=== PATIENT | female | born 1990 | race Caucasian/White ===

== ENCOUNTER 2017-08-10 20:22 | Outpatient (CLI) | payer OTHER, SELFPAY ==
[2017-08-10] MEDS: Lactated Ringers 1,000 ML 999 ML IV (21:05)
[2017-08-10 21:26] VITALS: BMI 25.9
[2017-08-10 21:29] LABS: Bacteria 0 SEEN /hpf (None Seen); Red Blood Cells-Urine 0 SEEN /hpf (0-5)
[2017-08-10 21:37] LABS: Absolute Lymphocyte Count 0.71 X10^3/ul (0.83-4.51); Absolute Neutrophil Count 8.9 X10^3/uL (2.0-7.7); Eosinophil# 0.04 X10^3/uL; Eosinophils% 0.4 % (0-5); Hematocrit 40.3 % (37-47); Hemoglobin 13.4 g/dl (12.0-15.0); Lymphocyte # 0.71 X10^3/ul (4.0); Mean Corp Hgb Conc 33.3 g/gl (32-36); Mean Corpuscular Hgb 29.8 pg (27.0-32.0); Mean Corpuscular Volume 89.8 fL (81-99); Mean Platelet Vol. 10.1 fl (6.2-12.0); Monocyte# 0.52 X10^3/uL; Monocyte% 5.1 % (0-10); Neutrophil # 8.89 X10^3/uL (2.7-7.7); Neutrophil % 87.3 % (47-70); Platelet Count 197 K/mm3 (150-450); RBC Distribution Width CV 13.3 % (11.6-14.6); RBC Distribution Width SD 42.8 fl (35.1-43.9); Red Blood Count 4.49 M/mm3 (4.2-5.4); White Blood Count 10.2 K/mm3 (4.4-11.0)
[2017-08-10 21:44] LABS: Color, Urine Yellow (Yellow); Glucose, Dipstick Normal (Normal); Ketone-Dipstick 5 mg/dl (Negative); Leukocyte Esterase-Dipstick 100 /ul (Negative); Nitrite-Dipstick Negative (Negative); Occult Blood-Urine 10 /ul (Negative); Protein-Dipstick 30 mg/dl (Negative); Urine Clarity Clear (Clear); Urine Urobilinogen Normal (Normal); Urine pH 6.5 (5.0 - 8.0)
[2017-08-10 21:46] LABS: Urine Bilirubin Dipstick 1 mg/dL (Negative)
[2017-08-10 21:51] LABS: ALB/GLOB Ratio 0.7 RATIO (0.9-2.4); AST(SGOT) 13 U/L (15-37); Alanine Aminotransfer ALT/SGPT 12 U/L (13-56); Albumin, Serum 2.8 g/dL (3.2-5.0); Alkaline Phosphatase 71 U/L (45-117); Anion Gap 9 (5-15); BUN 7 mg/dL (7-18); BUN/Creat Ratio 16.1 RATIO (10-20); Calcium,Total 7.6 mg/dL (8.5-10.1); Chloride 106 mmol/L (98-107); Creatinine, Serum 0.44 mg/dL (0.55-1.02); EST Glomerular Filtration Rate 187 mL/min (>60); Est Glom Filt Rate - Afr Amer 226 mL/min (>60); Estimated Creatinine Clearance 168.78 ml/min; Globulin 3.8 g/dL (2.2-4.2); Glucose 85 mg/dL (74-106); Potassium 3.2 mmol/L (3.5-5.1); Protein, Total 6.6 g/dL (6.4-8.2); Sodium Level 138 mmol/L (136-145)
[2017-08-10 21:52] LABS: Mucous, Urine 1+ /hpf (<or=2+); Squamous Epithelial Cells - UA 10-25 SEEN /hpf (5-10); White Blood Cells 0-5 SEEN /hpf (0-5)
[2017-08-10 21:58] LABS: POSITIVE COUNT NO; POSITIVE DIFFERENTIAL NO; POSITIVE MORPHOLOGY NO
[2017-08-10] MEDS: Ondansetron 4 MG/2 ML Vial IV (22:23)
[2017-08-10] MEDS: Acetaminophen 500 MG Tablet 1000 MG PO (22:23)
--- NOTE | 2017-08-14 18:04 | OB.TRI.NOTE ---
History of Present Illness Date of Service: 08/10/17 Was patient seen by the physician?: No Reason For Visit: R/O LABOR Date of Service: 08/10/17 Final DALLAS: 11/23/17 Gestational age: 25 Weeks and 4 Days History of Present Illness: Presented to L&D with complaint of nausea, vomiting, and headache since 0200 this am. Also complaint of hip pain and pressure. Home Medications Medication Instructions Recorded Vits [Prenatabs FA ] 1 tablet PO DAILY 10/28/13 Allergies No Known Allergies Allergy (Verified 08/10/17 21:26) NST - FHR Rate Baby A Baseline: 150 Variability:: Moderate Accelerations:: 15 x 15 Decelerations:: Variable NST Reactive:: Yes FHR Category:: Category II Impression/Plan A: Gastroenteritis Hypokalemia P: 1) 1 Liter LR bolus IV 2) CBC, CMP and U/A 3) K= 3.2, 20meq Potassium Chloride PO once. 4) 1,000mg Tyleonl PO x 1 5) Zofran 4mg IVP once 6) D/C home and follow up in office next day.
== END 2017-08-10 23:45 | disposition home or self-care (01) ==
LOC: WPOUT 20:55 → WP 20:55
PROVIDERS: Family Provider Family Medicine; PCP Family Medicine; Visit Provider Obstetrics & Gynecology
DX: O99.612 Diseases of the digestive system complicating pregnancy, second trimester (principal); K52.9 Noninfective gastroenteritis and colitis, unspecified; O99.112 Other diseases of the blood and blood-forming organs and certain disorders involving the immune mechanism complicating pregnancy, second trimester; E87.6 Hypokalemia; Z3A.25 25 weeks gestation of pregnancy
CPT/HCPCS: 96361; 96374; 59025; 80053; 81001; 85025; 99218; J7120; A4216; G0378; J2405

== ENCOUNTER 2017-10-15 13:05 | Outpatient (CLI) | payer OTHER, SELFPAY ==
[2017-10-15 13:41] VITALS: BMI 27.6
[2017-10-15] MEDS: Dext 5%-0.45% NS 1,000 ML 500 ML IV (13:50)
[2017-10-15] MEDS: Ondansetron 4 MG/2 ML Vial IV (14:00)
[2017-10-15] MEDS: Dext 5%-0.45% NS 1,000 ML 125 ML IV (14:20)
[2017-10-15 15:30] LABS: Bacteria 0 SEEN /hpf (None Seen); Mucous, Urine 0 SEEN /hpf (<or=2+); Red Blood Cells-Urine 0 SEEN /hpf (0-5)
[2017-10-15 15:33] LABS: Color, Urine Yellow (Yellow); Glucose, Dipstick 100 mg/dl (Normal); Ketone-Dipstick Negative (Negative); Leukocyte Esterase-Dipstick 100 /ul (Negative); Nitrite-Dipstick Negative (Negative); Occult Blood-Urine Negative /ul (Negative); Protein-Dipstick Negative (Negative); Specific Gravity, Urine 1.005 (1.002-1.030); Urine Bilirubin Dipstick Negative (Negative); Urine Clarity Sl. Cloudy (Clear); Urine Urobilinogen Normal (Normal); Urine pH 6.5 (5.0 - 8.0)
[2017-10-15 15:47] LABS: Squamous Epithelial Cells - UA 10-25 SEEN /hpf (5-10); White Blood Cells 5-10 SEEN /hpf (0-5)
--- NOTE | 2017-10-16 08:58 | OB.TRI.HP_ITS ---
- Problem List (1) Nausea/vomiting in Status: Acute History of Present Illness Date of Service: 10/15/17 Was patient seen by the physician?: No Reason For Visit: NAUSEA,VOMITING Date of Service: 10/15/17 Final DALLAS: 11/23/17 Final DALLAS Source: US <20 weeks Gestational age: 34 Weeks and 4 Days History of Present Illness: Patient reports she was visitng with her grandmother over the last few days and her grandmother came down with a stomach bug. Patient has had n/v for almost 24 hours and has been unable to keep food and water down for over 12 hours. Patient also reports increase in stomach cramping and possible pre-term contractions. Patient reports +FM. Denies LOF or VB. Denies fever, denies diarrhea. Patient has not taken any OTC for symptoms as she has not been able to keep anything down. Allergies No Known Allergies Allergy (Verified 10/15/17 13:41) Physical Exam Vitals: See nurse's notes for assessment and vitals - normotensive and afebrile. Physical assessment unremarkable. Estimated gestational size: Appropriate for gestational size Presentation: Cephalic Cervix Dilation (cm): 3 - Cervix posterior and firm Station: -3 Effacement (%): 50 NST - FHR Rate Baby A Baseline: 120 initially, change of baseline to 130 Variability:: Moderate Accelerations:: 15 x 15 Decelerations:: None NST Reactive:: Yes, Appropriate for gestational age FHR Category:: Category I Uterine Activity:: uterine irritablity noted on tocometer Impression/Plan 27 y/o @ 34.4 wks, Dehydration r/t possible viral gastroenteritis, Contractions - PTL ruled out P: 1) IV hydration initiation with D51/2NS - 500cc bolus and then running at 125mL 2) Zofran ODT 4mg PO x 1 now 3) PO challenge done - patient able to tolerate fluids 4) No cervical change after prolonged monitoring 5) Discharge to home with PTL and FKC precautions [facility] 7) Dr. Maxi GALE OB consulting physician agrees with Plan of Care Bisi Ramirez APRN-NEAL
== END 2017-10-15 17:20 | disposition home or self-care (01) ==
LOC: WPOUT 13:11 → WP 13:12
PROVIDERS: Family Provider Family Medicine; PCP Family Medicine; Visit Provider Obstetrics & Gynecology
DX: O21.2 Late vomiting of pregnancy (principal); O99.89 Other specified diseases and conditions complicating pregnancy, childbirth and the puerperium; E86.0 Dehydration; O47.00 False labor before 37 completed weeks of gestation, unspecified trimester; Z3A.34 34 weeks gestation of pregnancy
CPT/HCPCS: 96361 ×3; 96374; 59025; 59050; 81001; 99218; G0378; J2405; J7799

== ENCOUNTER 2017-11-02 02:00 | Inpatient (IN) | payer OTHER, SELFPAY ==
[2017-11-02 02:38] VITALS: BMI 27.8
[2017-11-02] MEDS: Lactated Ringers 1,000 ML 50 ML IV (02:38)
[2017-11-02 02:51] LABS: Hematocrit 40.9 % (37-47); Hemoglobin 13.7 g/dl (12.0-15.0); Mean Corp Hgb Conc 33.5 g/gl (32-36); Mean Corpuscular Hgb 30.2 pg (27.0-32.0); Mean Corpuscular Volume 90.1 fL (81-99); Mean Platelet Vol. 10.3 fl (6.2-12.0); Platelet Count 239 K/mm3 (150-450); RBC Distribution Width CV 12.8 % (11.6-14.6); RBC Distribution Width SD 41.5 fl (35.1-43.9); Red Blood Count 4.54 M/mm3 (4.2-5.4); White Blood Count 12.1 K/mm3 (4.4-11.0)
[2017-11-02 02:52] LABS: Scan Indicated on CBC? Y/N NO
--- NOTE | 2017-11-02 03:11 | PCM.HP.OB ---
- Problem List (1) Previous section complicating Status: Acute History Date of Admission: 11/02/16 Final DALLAS: 11/23/17 Final D[place] Source: US <20 weeks Gestational age: 37 Weeks and 0 Days History of this : This is a 27 year-old, G [4], P [2], at 37 weeks gestational age presenting to labor following regular ctx starting at 2330. Allergies No Known Allergies Allergy (Verified 11/02/17 02:36) Home Medications: Home Medications Vits [Prenatabs FA ] 1 tablet PO DAILY 10/28/13 Smoking Status: Never smoker Alcohol: None Number of Fetus(es): 1 History Past Pregnancies: Past Pregnancies Delivery Date Name GA/Weeks Outcome Route Weight Gender Labor Length Anesthesia Delivery Location Provider FOB Assessment/Plan All Active Problems Nausea/vomiting in (Acute) Premature rupture of membranes (Acute) Previous section complicating (Acute) Previous section (Acute) Previous section (Acute) This is a 27 year-old, G [], P [], at weeks gestational age.
[2017-11-02] MEDS: Oxytocin 30 units/NS 500 ml 30 UNITS/500 ML IV.SOLN 334 UNITS IV (03:46)
--- NOTE | 2017-11-02 04:01 | PCM.HP.OB ---
- Problem List (1) Previous section complicating Status: Acute History Date of Admission: 11/02/17 Final DALLAS: 11/23/17 Final [place] Source: US <20 weeks Gestational age: 37 Weeks and 0 Days History of this : This is a 27 year-old, G [4], P [2], at 37 weeks gestational age presenting to triage reporting regular ctx starting at 2330 that quickly got closer together and more intense. Patient reports +FM; denies vaginal bleeding and vaginal discharge. Patient reports rectal pressure and urge to push. Allergies No Known Allergies Allergy (Verified 11/02/17 02:36) Home Medications: Home Medications RX: Vits [Prenatabs FA ] 1 tablet PO DAILY 10/28/13 Smoking Status: Never smoker Alcohol: None Number of Fetus(es): 1 Heart Tracing: Baseline 125 initially, moderate variability, no decels noted TOCO Analysis: Ctx q 2-3 minutes, palpate moderate to strong History Past Pregnancies: Past Pregnancies Delivery Date Name GA/Weeks Outcome Route Weight Gender Labor Length Anesthesia Delivery Location Provider FOB Labs: See [facility] record: A+, Abs Neg, GBS Screen Neg, Rubella Immune, HepBsAg Neg, HIV Neg, Syphilis Screen Neg, GC/CT Neg/Neg, 1 hour GCT WNL Expected Delivery Method: Spontaneous Vaginal Describe any other labor & delivery plans:: Patient hopes for epidural for labor and . Desires . Number of Visits: >12 Review of Systems Constitutional: Denies: Chills, Fever, Weight Change HEENT: Denies: Head Aches, Sinus Congestion, Sinus Drainage Cardiovascular: Denies: Chest Pain, Palpitations Respiratory: Denies: Cough, Shortness of breath at rest, Sputum production Gastrointestinal: Denies: Abdominal Pain, Nausea, Vomiting Genitourinary: Denies: Dysuria Musculoskeletal: Denies: Joint Pain, Joint Tenderness Skin: Denies: Rash, Wounds Neurological: Denies: Numbness, Tingling, Focal weakness Psychiatric: Denies: Anxiety, Depression, Homicidal Ideations, Suicidal Ideations Hematologic/ Lymphatic: Denies: Easy Bruising, Easy Bleeding Physical Exam General: Alert, Oriented x3, No apparent distress HEENT: Atraumatic, Normocephalic. Negative for: Thyromegaly, Lymphadenopathy Cardiovascular: Regular rate, Regular Rhythm Lungs: Clear to auscultation Abdomen: Soft, Non Tender, Gravid, Appropriate for Gestational Age Extremities:: No edema Neurological: Deep Tendon Reflexes 2+/4 and Symmetrical, Neuro grossly intact CLIENT CARE REPRESENTATIVE: Normal external genitalia. Negative for: Vulvar lesions Estimated gestational size: Appropriate for gestational size Presentation: Cephalic Cervix Dilation (cm): 6.5 Station: 0 Effacement (%): 90 Assessment/Plan All Active Problems Nausea/vomiting in (Acute) Premature rupture of membranes (Acute) Previous section complicating (Acute) Previous section (Acute) Previous section (Acute) This is a 27 year-old, G [4], P [2], at 37 weeks gestational age, Active Labor, Previous LTCS desiring TOLAC, Category I FHT P: 1) Admit patient, Dr. Leija aware of admission and is in route 2) Start IV heplock and start fluid bolus in anticipation of epidural placement 3) TOLAC/ consent signed with patient 4) Anticipate Bisi PANTOJA
--- NOTE | 2017-11-02 04:13 | HP.PCM_ITS ---
- Problem List (1) Previous section complicating Status: Acute History Date of Admission: 11/02/17 Final DALALS: 11/23/17 Final [place] Source: US <20 weeks Gestational age: 37 Weeks and 0 Days History of this : This is a 27 year-old, G [4], P [2], at 37 weeks gestational age presenting to triage reporting regular ctx starting at 2330 that quickly got closer together and more intense. Patient reports +FM; denies vaginal bleeding and vaginal discharge. Patient reports rectal pressure and urge to push. Allergies No Known Allergies Allergy (Verified 11/02/17 02:36) Home Medications: Home Medications RX: Vits [Prenatabs FA ] 1 tablet PO DAILY 10/28/13 Smoking Status: Never smoker Alcohol: None Number of Fetus(es): 1 Heart Tracing: Baseline 125 initially, moderate variability, no decels noted TOCO Analysis: Ctx q 2-3 minutes, palpate moderate to strong History Past Pregnancies: Past Pregnancies Delivery Date Name GA/Weeks Outcome Route Weight Gender Labor Length Anesthesia Delivery Location Provider FOB Labs: See [facility] record: A+, Abs Neg, GBS Screen Neg, Rubella Immune, HepBsAg Neg, HIV Neg, Syphilis Screen Neg, GC/CT Neg/Neg, 1 hour GCT WNL Expected Delivery Method: Spontaneous Vaginal Describe any other labor & delivery plans:: Patient hopes for epidural for labor and . Desires . Number of Visits: >12 Review of Systems Constitutional: Denies: Chills, Fever, Weight Change HEENT: Denies: Head Aches, Sinus Congestion, Sinus Drainage Cardiovascular: Denies: Chest Pain, Palpitations Respiratory: Denies: Cough, Shortness of breath at rest, Sputum production Gastrointestinal: Denies: Abdominal Pain, Nausea, Vomiting Genitourinary: Denies: Dysuria Musculoskeletal: Denies: Joint Pain, Joint Tenderness Skin: Denies: Rash, Wounds Neurological: Denies: Numbness, Tingling, Focal weakness Psychiatric: Denies: Anxiety, Depression, Homicidal Ideations, Suicidal Ideations Hematologic/ Lymphatic: Denies: Easy Bruising, Easy Bleeding Physical Exam General: Alert, Oriented x3, No apparent distress HEENT: Atraumatic, Normocephalic. Negative for: Thyromegaly, Lymphadenopathy Cardiovascular: Regular rate, Regular Rhythm Lungs: Clear to auscultation Abdomen: Soft, Non Tender, Gravid, Appropriate for Gestational Age Extremities:: No edema Neurological: Deep Tendon Reflexes 2+/4 and Symmetrical, Neuro grossly intact TANK CLEANING SUPERVISOR: Normal external genitalia. Negative for: Vulvar lesions Estimated gestational size: Appropriate for gestational size Presentation: Cephalic Cervix Dilation (cm): 6.5 Station: 0 Effacement (%): 90 Assessment/Plan All Active Problems Nausea/vomiting in (Acute) Premature rupture of membranes (Acute) Previous section complicating (Acute) Previous section (Acute) Previous section (Acute) This is a 27 year-old, G [4], P [2], at 37 weeks gestational age, Active Labor, Previous LTCS desiring TOLAC, Category I FHT P: 1) Admit patient, Dr. Leija aware of admission and is in route 2) Start IV heplock and start fluid bolus in anticipation of epidural placement 3) TOLAC/ consent signed with patient 4) Anticipate Bisi PANTOJA
--- NOTE | 2017-11-02 04:13 | PCM.OB.VAG ---
- Problem List (1) Previous section complicating Status: Resolved Vaginal Delivery Maternal Presentation: Active Labor Amniotic Membrane Rupture Type: Artificial Amniotic Fluid Description: Clear, Bloody Final DALLAS: 11/23/17 Final [place] Source: US <20 weeks Gestational age: 37 Weeks and 0 Days Date of Procedure: 11/02/17 Pre-Operative Diagnosis: Active Labor, TOLAC Post-Operative Diagnosis: , Surgery/ Procedure Performed: Spontaneous Vaginal Delivery Type of Anesthesia: None Description of Procedure: Patient progressed quickly to 9/100/0 with urge to push. Discussed with patient that she would likely deliver soon and that there would not be time for epidural placement. AROM done to help hasten delivery. AROM for clear-bloody fluid done without difficulty. With next few ctx patient felt spontaneous urge to bear down and delivered viable girl over intact perineum at 0340. Infant head delivered OA and then restituted to BERNARDO. Infant shoulders and body then delivered without difficulty. Infant with spontaneous cry and respirations. Infant dried and stimulated, mouth and nose bulb suctioned and infant placed on maternal chest. Apgars 8 and 8. Umbilical cord clamped and cut once it stopped pulsing by FOB. Placenta then delivered with maternal effort using gentle downward cord traction initially. Evidence of tearing of cord noted and no further traction was placed. Half of placental disc was out of vagina and delivery was assisted with use of ring forceps to grasp placental disc with maternal pushing effort. Placenta looked intact on inspection with 3VC but will be sent to pathology to assess completeness. FF to massage and midline 2FB below umbilicus. EBL = 150cc. Upon inspection of vaginal vault, no laceration noted. Bilateral periurethral abrasions detected with good hemostasis. No repair necessary. Sponge count correct. Vaginal sweep negative. Baby to breast, bonding and initiated. Dr. Leija notified of delivery. Bisi Ramirez STATISTICAL DEVELOPER-CNM Presentation: Vertex, BERNARDO Placental Delivery Description: Spontaneous, Manual Removal Placenta Disposition: Sent to Pathology Cord Vessel Description: 3 Vessels Cord Entanglement: None Estimated Blood Loss: 150 A gender: Female (1 minute): 8 (5 minute): 8 Episiotomy Description: None Laceration: None Medications given after delivery: IV Pitocin Complications: None
[2017-11-02] MEDS: Oxytocin 30 units/NS 500 ml 30 UNITS/500 ML IV.SOLN 167 UNITS IV (04:16)
--- NOTE | 2017-11-02 04:23 | NURSING ---
voided during pushing, not measured
--- NOTE | 2017-11-02 04:42 | DCINST_ITS ---
Discharge Diet: No Restrictions Discharge Activity: Return to Normal Activity, May not drive while taking narcotic pain medications., May Shower May resume sexual activity in: 4-6 weeks Additional Activity Instructions:: Nothing in the vagina for 4-6 weeks. You may return to work/school in 6 weeks. Call your doctor if your incision/area has: Continuous Slow Oozing, Sudden Increased Bleeding, Increased Pain/ Swelling, Increased Redness, Foul Smelling Discharge Call your doctor if you observe: Fever of 101 or Higher, Inability to urinate, Using more than one pad per hour, Uncontrolled pain Additional Instructions: If you experience any of the following, contact your healthcare provider. * Bleeding that soaks a pad every hour for 2 hours * Fever 100.4 or higher * Unrelieved incision or abdominal pain * Swelling, redness, discharge or bleeding from your incision or episiotomy site * Your incision begins to separate * Problems urinating (including inability to urinate or burning while urinating) . * Visual changes * Severe headache * Flu-like symptoms * Pain or redness in one of both of your breasts * Pain, warmth, tenderness or swelling in your legs, especially the calf area * Frequent nausea and vomiting * Symptoms of depression or anxiety If you experience any of the following, call 911 or go to the nearest Emergency Room. * Chest pain * Problems breathing * Seizure activity * Partial or complete paralysis of a body part, slurred speech, weakness or drooping of the face, or a sudden inability to walk or hold your balance Allergies/Adverse Reactions: Allergies No Known Allergies Allergy (Verified 11/02/17 02:36) Medications to take at Discharge Vits [Prenatabs FA ] 1 tablet PO DAILY 10/28/13 Please Follow Up With: Bisi Ramirez CNM When: Call to make an appointment with your doctor in 6 weeks. If you had elevated Blood Pressure or 4th degree laceration you will need to be seen in 2 weeks. Primary Care Physician: Lucian Henderson III, MD [Primary Care Provider] - Test Results: Test results from this visit will be discussed in further detail at your follow- up appointment, if applicable. Proposed Discharge Date: 11/02/17
[2017-11-02] MEDS: 0.9% Saline Lock 10 ML Syringe IV (05:20)
[2017-11-02 05:49] VITALS: BP 118/75; PULSE 66; RESP 18; TEMP 36.2
[2017-11-02 08:00] VITALS: BP 110/67; PULSE 70; RESP 16; TEMP 36.4; O2SAT 96
[2017-11-02 12:37] VITALS: BP 112/77; RESP 16; TEMP 36.4
--- NOTE | 2017-11-02 15:49 | CASEMGMT ---
Social Work Note Labor and Delivery Unit Social work consulted due to maternal history of depression. Chart reviewed and noted in the care record that mother of baby (MOB) endorsed depression after both previous pregnancies, though never disclosed this to health child care development specialist. Plan: Will plan to see MOB on 11-03-17 for assessment. -CATHRYN Cardenas, DIVISION OPERATIONS MANAGER
[2017-11-02 19:40] VITALS: BP 119/46; PULSE 83; RESP 18; TEMP 36.2
[2017-11-02 23:38] VITALS: BP 128/89; PULSE 80; RESP 18; TEMP 36.1
[2017-11-03 04:10] VITALS: BP 126/78; PULSE 87; RESP 18; TEMP 36.3
--- NOTE | 2017-11-03 07:41 | NURSING ---
This RN noting interactions between patient and FOLuis Fernando Aguilar. This RN was caring for patient in labor. When asked if Jeff wanted to interact with patient during labor, he repeatedly said no. He did not participate in holding legs during delivery, remained in corner of room in chair on cell phone. He did not interact with mother or after delivery during recovery period, then proceeded to go home before patient off recovery. He did not return to hospital until 1900 on 11/02. He was never seen holding infant or interacting with patient or infant. Slept on couch overnight. When RN asked if she felt safe at home she said yes. She denied any hx abuse. States she has help after dc. Order is in for social staff worker to see patient before dc.
--- NOTE | 2017-11-03 08:16 | PN.OBGYN_ITS ---
Subjective: Patient sitting up at this time, reporting no issues. No pain with ambulation or urination. Patient denies MATA, scotoma or dizziness. Patient requests discharge to home today pending discharge. Objective: Nipples BL without cracks or blisters, no erythema. Soft and filling. Abdomen NT x 4 quadrants, FF midline 2FB below umbilicus Perineum intact, scant rubra lochia +2/4 reflexes in LE, no calf tenderness to palpation - Physical Exam General: Alert, Oriented x3, Cooperative HEENT: Atraumatic, Normocephalic Neck: Supple Lungs: Normal air movement Cardiovascular: Regular rate, No murmurs Abdomen: Soft, Non Tender Extremities: No edema, Capillary Refill Less than 3 Seconds Skin: No rashes, No breakdown Musculoskeletal: No Tenderness to Palpation of Joints or Extremities Neurological: Cranial nerves II-XII grossly intact Psych/Mental Status: Normal Affect, Appropriate Vital Signs Temp Pulse Resp BP Pulse Ox 97.3 F L 87 18 126/78 H 96 11/03/17 04:10 11/03/17 04:10 11/03/17 04:10 11/03/17 04:10 11/02/17 08:00 Oxygen Delivery Method Room Air Weight: 162 lb Body Mass Index (BMI) 27.8 Intake and Output for Last 24 Hours 11/01/17 11/02/17 11/03/17 23:59 23:59 23:59 Intake Total 1347 / 1347 Output Total 600 / 600 Balance 747 / 747 Medical Necessity - Tobacco Use Smoking Status: Never smoker Assessment/Plan All Active Problems Nausea/vomiting in (Acute) Premature rupture of membranes (Acute) Previous section complicating (Resolved) Previous section (Acute) Previous section (Acute) 27 y/o G3, now P3 s/p -. Normal PP Course, PPD #1. P: 1) Discharge to home pending discharge 2) Nexplanon LARC implant procedure done 3) Anticipatory health teaching done 4) RTC in 6 week to [facility] for PP visit Bisi PANTOJA
[2017-11-03] MEDS: Etonogestrel 68 MG IMPLANT SQ (08:35)
[2017-11-03 09:06] VITALS: BP 112/71; PULSE 72; RESP 16; TEMP 36.5
[2017-11-03 14:00] VITALS: BP 122/80; PULSE 82; RESP 18; TEMP 36.8
--- NOTE | 2017-11-03 14:22 | CASEMGMT ---
Social Work Assessment Labor and Delivery Unit Date of Referral: 11/02/2017 Time of Referral: 736 Referred By: Dr. Madi Leija Date of Intervention: 11/03/2017 Time of Intervention: 1030 Reason for Referral: maternal mental health, history of mild depression. History obtained from: Medical record, mother of baby (MOB), and reported father of baby (FOB) present for part of conversation. Household composition: MOB, FOB, and older children live in an apartment. Intent to take to the home. MOB reports home situation is safe and adequate. Patient's parent/guardian status: MOB, age 27, and FOB Jeff Ray have been together for 9 years, and now have 3 children together. Domestic Violence: MOB denies any form of abuse, neglect, controlling, or intimidation by FOB. MOB denies that FOB expects MOB to do certain things in the home. MOB reports to feel safe and reports ability to speak up to FOB, as well as reports perception that FOB is willing to help MOB when needed or requested. Minor children include: Tammy (born 1[birth year]15), Bowen (born 7[birth year]17), and Timo Ray (born 7[birth year]18). Medical History: MOB is G4, P2 to 3 after delivering Timo. MOB with care starting at 7 weeks. MOB with close intervals between pregnancies. Infant was born at 37 weeks gestation, weighing 6 pounds 3 ounces, Apgars 8 and 8. Educational Status: MOB with high school education. No reported issues with reading or writing. Financial Status: MOB became a stay at home mother about 6 months ago. 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 FOLuis Fernando is the sole income provider at this point, works fulltime as a daja. Infant Supplies: MOB reports to have needed infant supplies including bassinet for baby to sleep in, car seat, clothing, diapers, wipes, and plans to breast feed. MOB reports each child has her own sleep space. Childcare/Caregiver(s): MOB Transportation: FOB drives or MOB relies on MOBs mother for rides. Programs/Agencies Involved: MOB reports interested in getting WIC, as well as reapplying for Medicaid for her daughters as apparently let this lapse. MOB denies any other agency involvement or desire for other referrals. Children Services/Legal Issues: MOB denies legal issues. MOB denies any past or present involvement with children services. Behavioral Health Issues: MOB reports history of depression occurring after prior births. MOB reports this was mild, not to the point of needing any medication or counseling. MOB describes this time as feeling sad and down. At the same time, MOB was working 3rd shift, FOB worked during the day, and MOB reports felt that had to do everything and therefore was not sleeping much either. MOB reports dealt with depression by getting out of the house, being with others/not isolating, and talking to MOBs mother daily. MOB denies that suicide has ever been an option for MOB and reports at this juncture, MOBs children are a great reason to live. MOB reports to identify with being a mother, and would do anything for the children. MOB denies any drug or alcohol use or abuse history. Drug screen done prenatally on 04-09-17 was negative for any drugs of abuse. Family/Social Stressors: MOB and FOB are in the process of moving to a bigger apartment when MOB went into labor. MOB will be taking baby to the new apartment at discharge, but the family does still have things in the old apartment to move over. In addition to this change, MOB with close intervals between pregnancies. MOB reports the was a shock, but that MOB was and has been happy about the baby. Family has gone from two incomes to one income, and not currently connected with any community resources. Support Systems: MOB reports that FOB is a good support to MOB when FOB is at home. FOB interjected and stated I wouldnt go that far when MOB was reporting praises to FOB being a lot of help at home. MOB reports FOB does like to come home to shower and to eat after work, but does help MOB with the kids when needed. MOB reports her mother, and then FOBs mother also live close by and are willing to help out as well. When asked who will be able to help MOB at home going, as FOB will be going back to work shortly after home going, FOB reported likely his mother will be able to help out. MOBs mother has been taking care of the other children while family in the hospital. ASSESSMENT: Met with MOB and FOB together initially, and then alone with MOB to further discuss mental health, substances, and domestic violence questions. Was able to talk with both together about depression, and importance of MOB having support and help from others. FOB listened to social work discussion, was quiet overall, at times nodding head yes in agreement to some topics discussed. Despite lack of interactions the staff has seen by FOB towards MOB and the baby, the MOB privately states that FOB is helpful with the kids, that FOB is excited about the children and loves all of the children. MOB reports perception that support at home is adequate. Educated MOB and FOB together about depression and anxiety, risk for such present with MOB, and importance of seeking out help and support. Normalized this as something that happens to many women, that this is not a fault or shortcoming of the woman, but something that benefits from support. Discussed that it is okay to let others know, and really is important to have self-care. Introduced to FOB the idea that paternal depression also exists, and if symptoms occur it is okay to speak up. MOB able to give appropriate response on what to do if feeling overwhelmed or frustrated, so as to prevent shaken baby. MOB and FOB both report to know what safe sleeping means. MOB was receptive to supports and resources offered today. Strongly encouraged MOB to follow through with getting financial assistance and medical coverage for the children. MOB reports intent to follow through with WIC and with [facility]. MOB held baby during social work visit, smiled at baby, gazed at baby, touched baby gently and overall was attentive. Baby slept the entirety of social work visit. MOB endorses that MOBs children are the most important things in MOBs life, and MOB would do anything for the kids. MOB smiled at appropriate times, spontaneous in conversation, held good eye contact, pleasant and nondefensive. MOB reports agreement to let family know if symptoms of depression arise again, and to let the doctor know as well. Reinforced with MOB that it is okay to let others know if needs help, and importance of doing so. MOB verbally agreed, but vale report that this time to feel happy and indicates to have a burciaga with baby. PLAN: MOB and baby to home when ready for discharge. MOB reports intent to apply for WIC for all three children and self as well as to apply for medical and likely food through [facility]. MOB expressed intereste in an online depression support group social work discussed, and accepting of depression packet offered. Provided MOB with [facility] resources list including counseling options, parent support options, emergency shelters, and in-kind help; a brochure on [employer] and the early head start/head start programs. No other services requested or indicated. -TAHDDEUS Cardenas, HALAL BUTCHER
--- NOTE | 2017-11-03 14:51 | NURSING ---
dressing for Nexaplon implant loosened. Patient was complaining of numbness and tingling in hand
== END 2017-11-03 16:00 | disposition home or self-care (01) | DRG 775 ==
PROVIDERS: Admitting Provider Obstetrics & Gynecology; Family Provider Family Medicine; PCP Family Medicine; Visit Provider Obstetrics & Gynecology
DX: O34.211 Maternal care for low transverse scar from previous cesarean delivery (principal); O62.3 Precipitate labor; O71.82 Other specified trauma to perineum and vulva; Z3A.37 37 weeks gestation of pregnancy; Z37.0 Single live birth; Z30.49 Encounter for surveillance of other contraceptives
CPT/HCPCS: 59025; 59050; 85027; 86850; 86900; 99218; J7120; A4216; G0378

== ENCOUNTER 2018-03-04 18:31 | Emergency (ER) | payer OTHER, SELFPAY ==
[2018-03-04 18:32] VITALS: BP 138/85; PULSE 77; RESP 17; TEMP 36.9; O2SAT 100; BMI 22.4
[2018-03-04 18:41] VITALS: BP 126/86; PULSE 72; RESP 19; O2SAT 98
--- NOTE | 2018-03-04 18:48 | EKG12_ITS ---
Test Reason : CP Blood Pressure : / mmHG Vent. Rate : 073 BPM Atrial Rate : 073 BPM P-R Int : 140 ms QRS Dur : 068 ms QT Int : 402 ms P-R-T Axes : 064 000 088 degrees QTc Int : 442 ms Normal sinus rhythm Low voltage QRS Nonspecific T wave abnormality Abnormal ECG Confirmed by JAMES SINGH ([id number]), managing editor GRETEL MCKEON ([id number]) on 03/08/2018 2:22:13 PM Referred By: GIULIANO Confirmed By:JAMES SINGH
--- NOTE | 2018-03-04 18:51 | ED.DCSUM_ITS ---
- ER Visit Summary Date of Service: 03/04/18 Chief Complaint: Chest pain History of Present Illness: The patient is a 27 F presenting with chest pain. She states it started yesterday. Pain is intermittent. When it comes on it lasts for 1-2 minutes at a time. She states it is in her right side of her [address]. She states nothing makes it better or worse. She does not recall anything that makes it come on. She has had increased stress and has history of anxiety. She has shortness of breath associated with this. She also has nausea. Denies other complaints. Physical Examination: Vitals are stable. Patient is afebrile. Alert no acute distress. HEENT exam is unremarkable. Neck is supple, nontender Lungs are clear and equal bilaterally. Chest wall tenderness to palpation with no crepitus Heart is regular rate and rhythm. Abdomen is soft nontender nondistended. Extremities are unremarkable. Skin is warm and dry. No focal neurologic deficit. Remainder of exam is unremarkable. Emergency Department Course and Treatment: Patient is given Toradol and Zofran IV. CBC, chemistries unremarkable other than potassium 3.2. EKG is sinus rate of 73. Chest x-ray is normal. Troponin is negative. D-dimer negative. HCG negative. Patient is feeling improved on reevaluation. She is advised to follow-up with her primary care physician. She is given a prescription for Naprosyn. Advised return to ED if worsening complaints. Disposition: Discharge home Impression: Chest wall pain This note was generated with [employer] dictation software. It may contain incorrect words, spelling, and punctuation that were not noted in review of the chart prior to signing ED Disposition - Plan for ED Patient: Chief Complaint: Chest Pain Instructions: ED Chest Pain Atypical Unkn Cause Prescriptions: Naproxen [Naprosyn] 500 mg PO BID PRN #20 tablet Referrals: Lucian Henderson III, MD [Primary Care Provider] -
--- NOTE | 2018-03-04 18:52 | RAD_ITS ---
STUDY: X-RAY CHEST REASON FOR EXAM: Female, 27 years old. Chest pain TECHNIQUE: Single AP portable view of the chest. COMPARISON: 08/26/2016 FINDINGS: The lungs are clear and expanded. There is no demonstrated pleural abnormality. Normal size heart. Normal mediastinum and niki. Normal visualized pulmonary arteries. Normal visualized aortic arch and descending thoracic aorta. Normal visualized thoracic spine. Normal visualized ribs, clavicles, and shoulders. There is no demonstrated abnormality of the visualized soft tissue structures of the upper abdomen. RAD/Chest 1 View (Portable) IMPRESSION: Normal x-ray examination of the chest. Electronically Signed: Eriberto Quintero MD at 19:10 EST , Service support ,
[2018-03-04] MEDS: Ketorolac 15 MG/ML Vial IV (19:07)
[2018-03-04] MEDS: Ondansetron 4 MG/2 ML Vial IV (19:07)
[2018-03-04 19:11] LABS: Absolute Lymphocyte Count 2.18 X10^3/ul (0.83-4.51); Absolute Neutrophil Count 3.4 X10^3/uL (2.0-7.7); Basophil# 0.01 X10^3/uL; Basophil% 0.2 % (0-1); Eosinophil# 0.14 X10^3/uL; Eosinophils% 2.3 % (0-5); Hematocrit 43.2 % (37-47); Lymphocyte # 2.18 X10^3/ul (4.0); Lymphocyte % 35.6 % (19-41); Mean Corp Hgb Conc 32.4 g/gl (32-36); Mean Corpuscular Hgb 29.3 pg (27.0-32.0); Mean Corpuscular Volume 90.4 fL (81-99); Mean Platelet Vol. 10.2 fl (6.2-12.0); Monocyte# 0.39 X10^3/uL; Monocyte% 6.4 % (0-10); Neutrophil # 3.41 X10^3/uL (2.7-7.7); Neutrophil % 55.5 % (47-70); Platelet Count 225 K/mm3 (150-450); RBC Distribution Width CV 12.5 % (11.6-14.6); RBC Distribution Width SD 41.2 fl (35.1-43.9); Red Blood Count 4.78 M/mm3 (4.2-5.4); White Blood Count 6.1 K/mm3 (4.4-11.0)
[2018-03-04 19:13] LABS: POSITIVE COUNT NO; POSITIVE DIFFERENTIAL NO; POSITIVE MORPHOLOGY NO
[2018-03-04 19:28] VITALS: BP 118/66; PULSE 66; RESP 20; O2SAT 98
[2018-03-04 19:33] LABS: D-Dimer Quantitative (DVT/PE) 0.36 FEU/ug/m (0.27-0.49)
[2018-03-04 19:37] LABS: Anion Gap 7 (5-15); BUN 14 mg/dL (7-18); BUN/Creat Ratio 22.3 RATIO (10-20); Calcium,Total 8.4 mg/dL (8.5-10.1); Chloride 108 mmol/L (98-107); Creatinine, Serum 0.63 mg/dL (0.55-1.02); EST Glomerular Filtration Rate 122 mL/min (>60); Est Glom Filt Rate - Afr Amer 148 mL/min (>60); Estimated Creatinine Clearance 117.88 ml/min; Glucose 105 mg/dL (74-106); Potassium 3.2 mmol/L (3.5-5.1); Sodium Level 143 mmol/L (136-145)
[2018-03-04 19:42] LABS: Pregnancy, Serum, hCG Quali. NEGATIVE Negative (0-9 Nonpreg)
--- NOTE | 2018-03-04 21:35 | ED.DEP ---
ED Disposition - Plan for ED Patient: Chief Complaint: Chest Pain Instructions: ED Chest Pain Atypical Unkn Cause Prescriptions: Naproxen [Naprosyn] 500 mg PO BID PRN #20 tablet Referrals: Lucian Henderson III, MD [Primary Care Provider] -
[2018-03-04 21:50] VITALS: BP 118/70; PULSE 72; RESP 16; O2SAT 98
== END 2018-03-04 21:52 | disposition home or self-care (01) ==
LOC: ED 19:02
PROVIDERS: Emergency Provider Emergency Medicine; Family Provider Family Medicine; PCP Family Medicine
DX: R07.89 Other chest pain (principal); F32.9 Major depressive disorder, single episode, unspecified; F41.9 Anxiety disorder, unspecified
CPT/HCPCS: 71045; 80048; 84484; 84703; 85025; 85379; 93005; 96374; 96375; 99284; A4216; J2405

== ENCOUNTER → 2018-09-29 15:32 | Outpatient (CLI) | payer BC, SELFPAY ==
--- NOTE | 2018-09-29 15:46 | RAD_ITS ---
STUDY: X-RAY - PELVIS REASON FOR EXAM: Female, 28 years old. Inflammatory polyarthropathy TECHNIQUE: One view of the pelvis was obtained. COMPARISON: None. FINDINGS: There is a non-specific bowel gas pattern. Normal visualized soft tissue structures. There are mild sclerotic changes of the right SI joint. Normal visualized bilateral superior and inferior pubic rami. There is narrowing with sclerosis of the pubic symphysis. Normal ischial tuberosities. Normal visualized right femoral head. Normal right acetabulum. Normal right hip joint. Normal visualized left femoral head. Normal left acetabulum. Normal left hip joint. RAD/Pelvis 1 or 2 Views IMPRESSION: Mild sclerotic degenerative changes of the right SI joint. Narrowing with sclerosis of the pubis symphysis. Electronically Signed: Jin Malloy MD at 16:46 EDT , Service support ,
[2018-09-29 17:43] LABS: Basophil# 0.01 X10^3/uL; Basophil% 0.1 % (0-1); Eosinophil# 0.06 X10^3/uL; Eosinophils% 0.9 % (0-5); Hematocrit 43.7 % (37-47); Hemoglobin 14.1 g/dl (12.0-15.0); Lymphocyte % 31.4 % (19-41); Mean Corp Hgb Conc 32.3 g/gl (32-36); Mean Corpuscular Hgb 28.3 pg (27.0-32.0); Mean Corpuscular Volume 87.8 fL (81-99); Monocyte# 0.47 X10^3/uL; Neutrophil # 4.03 X10^3/uL (2.7-7.7); Neutrophil % 60.5 % (47-70); Platelet Count 236 K/mm3 (150-450); RBC Distribution Width CV 12.5 % (11.6-14.6); RBC Distribution Width SD 39.2 fl (35.1-43.9); Red Blood Count 4.98 M/mm3 (4.2-5.4); White Blood Count 6.7 K/mm3 (4.4-11.0)
[2018-09-29 17:54] LABS: Erythrocyte Sedimentation Rate 1 mm/hr (0-20)
[2018-09-29 17:56] LABS: ALB/GLOB Ratio 1.1 RATIO (0.9-2.4); AST(SGOT) 10 U/L (15-37); Alanine Aminotransfer ALT/SGPT 17 U/L (13-56); Albumin, Serum 3.9 g/dL (3.2-5.0); Alkaline Phosphatase 70 U/L (45-117); Anion Gap 6 (5-15); BUN 15 mg/dL (7-18); BUN/Creat Ratio 20.6 RATIO (10-20); CRP < 2.90 mg/L (0.0-3.0); Calcium,Total 8.9 mg/dL (8.5-10.1); Chloride 108 mmol/L (98-107); Creatinine, Serum 0.73 mg/dL (0.55-1.02); EST Glomerular Filtration Rate 103 mL/min (>60); Est Glom Filt Rate - Afr Amer 124 mL/min (>60); Globulin 3.7 g/dL (2.2-4.2); Glucose 84 mg/dL (74-106); POSITIVE COUNT NO; POSITIVE DIFFERENTIAL NO; POSITIVE MORPHOLOGY NO; Potassium 3.4 mmol/L (3.5-5.1); Protein, Total 7.6 g/dL (6.4-8.2); Rheumatoid Factor < 10.0 IU/mL (<15); Sodium Level 144 mmol/L (136-145)
[2018-10-03 13:21] LABS: ANTINUCLEAR ANTIBODIES DIRECT Negative (Negative)
[2018-10-05 14:07] LABS: HEPATITIS B SURFACE AG Negative (Negative)
[2018-10-06 11:30] LABS: CCP IgG Antibodies 6 units (0-19); HLA B27 Negative (.); Hep B Surface Antibodies Non Reactive (.); Hep C Antibodies 0.2 s/co ratio (0.0-0.9); Hepatitis B Core AB IgM Negative (Negative)
== END ==
PROVIDERS: Family Provider Family Medicine; PCP Family Medicine; Referring Provider Internal Medicine Rheumatology; Visit Provider Internal Medicine Rheumatology
DX: M06.4 Inflammatory polyarthropathy (principal); R51 Headache
CPT/HCPCS: 36415; 72170; 80053; 81374; 85025; 85652; 86038; 86140; 86200; 86431; 86705; 86706; 86803; 87340

== ENCOUNTER → 2018-12-07 16:33 | Outpatient (CLI) | payer BC, SELFPAY ==
[2018-12-07 17:34] LABS: Absolute Lymphocyte Count 1.97 X10^3/uL (0.83-4.51); Absolute Neutrophil Count 5.6 X10^3/uL (2.0-7.7); Basophil# 0.03 X10^3/uL; Basophil% 0.4 % (0-1); Eosinophil# 0.07 X10^3/uL; Eosinophils% 0.9 % (0-5); Hematocrit 44.5 % (37-47); Hemoglobin 14.6 g/dL (12.0-15.0); Lymphocyte # 1.97 X10^3/ul (4.0); Lymphocyte % 24.2 % (19-41); Mean Corp Hgb Conc 32.8 g/dL (32-36); Mean Corpuscular Hgb 29.5 pg (27.0-32.0); Mean Corpuscular Volume 89.9 fL (81-99); Mean Platelet Vol. 10.8 fl (6.2-12.0); Monocyte# 0.44 X10^3/uL; Monocyte% 5.4 % (0-10); NRBC Flagged by Analyzer 0 % (0-5); Neutrophil # 5.59 X10^3/uL (2.7-7.7); Neutrophil % 68.7 % (47-70); Platelet Count 243 K/mm3 (150-450); RBC Distribution Width CV 12.4 % (11.6-14.6); RBC Distribution Width SD 40.1 fl (35.1-43.9); Red Blood Count 4.95 M/mm3 (4.2-5.4); White Blood Count 8.1 K/mm3 (4.4-11.0)
[2018-12-07 17:52] LABS: ALB/GLOB Ratio 1.1 RATIO (0.9-2.4); AST(SGOT) 11 U/L (15-37); Alanine Aminotransfer ALT/SGPT 15 U/L (13-56); Albumin, Serum 3.9 g/dL (3.2-5.0); Alkaline Phosphatase 71 U/L (45-117); Anion Gap 6 (5-15); BUN 15 mg/dL (7-18); BUN/Creat Ratio 24.4 RATIO (10-20); Calcium,Total 8.6 mg/dL (8.5-10.1); Chloride 108 mmol/L (98-107); Creatinine, Serum 0.62 mg/dL (0.55-1.02); EST Glomerular Filtration Rate 124 mL/min (>60); Est Glom Filt Rate - Afr Amer 150 mL/min (>60); Globulin 3.4 g/dL (2.2-4.2); Glucose 106 mg/dL (74-106); Potassium 3.5 mmol/L (3.5-5.1); Protein, Total 7.3 g/dL (6.4-8.2); Sodium Level 143 mmol/L (136-145)
== END ==
LOC: MTLAB 16:36
PROVIDERS: Family Provider Family Medicine; PCP Family Medicine; Referring Provider Internal Medicine Rheumatology; Visit Provider Internal Medicine Rheumatology
DX: M06.4 Inflammatory polyarthropathy (principal); Z79.899 Other long term (current) drug therapy
CPT/HCPCS: 36415; 80053; 85025

== ENCOUNTER → 2019-02-10 16:04 | Outpatient (CLI) | payer BC, SELFPAY ==
[2019-02-10 17:59] LABS: Absolute Lymphocyte Count 1.79 X10^3/uL (0.83-4.51); Absolute Neutrophil Count 6.1 X10^3/uL (2.0-7.7); Basophil# 0.03 X10^3/uL; Basophil% 0.4 % (0-1); Eosinophil# 0.06 X10^3/uL; Eosinophils% 0.7 % (0-5); Hematocrit 42.4 % (37-47); Hemoglobin 13.3 g/dL (12.0-15.0); Lymphocyte # 1.79 X10^3/ul (4.0); Lymphocyte % 20.9 % (19-41); Mean Corp Hgb Conc 31.4 g/dL (32-36); Mean Corpuscular Hgb 28.7 pg (27.0-32.0); Mean Corpuscular Volume 91.4 fL (81-99); Mean Platelet Vol. 10.8 fl (6.2-12.0); Monocyte# 0.53 X10^3/uL; Monocyte% 6.2 % (0-10); NRBC Flagged by Analyzer 0 % (0-5); Neutrophil # 6.14 X10^3/uL (2.7-7.7); Neutrophil % 71.6 % (47-70); Platelet Count 245 K/mm3 (150-450); RBC Distribution Width CV 11.9 % (11.6-14.6); RBC Distribution Width SD 39.6 fl (35.1-43.9); Red Blood Count 4.64 M/mm3 (4.2-5.4); White Blood Count 8.6 K/mm3 (4.4-11.0)
[2019-02-10 18:33] LABS: ALB/GLOB Ratio 1.1 RATIO (0.9-2.4); AST(SGOT) 8 U/L (15-37); Alanine Aminotransfer ALT/SGPT 16 U/L (13-56); Albumin, Serum 3.8 g/dL (3.2-5.0); Alkaline Phosphatase 66 U/L (45-117); Anion Gap 7 (5-15); BUN 14 mg/dL (7-18); BUN/Creat Ratio 20.1 RATIO (10-20); Calcium,Total 8.5 mg/dL (8.5-10.1); Chloride 106 mmol/L (98-107); EST Glomerular Filtration Rate 107 mL/min (>60); Est Glom Filt Rate - Afr Amer 130 mL/min (>60); Globulin 3.4 g/dL (2.2-4.2); Glucose 82 mg/dL (74-106); Potassium 3.8 mmol/L (3.5-5.1); Protein, Total 7.2 g/dL (6.4-8.2); Sodium Level 142 mmol/L (136-145)
== END ==
LOC: MTLAB 16:06
PROVIDERS: Family Provider Family Medicine; PCP Family Medicine; Referring Provider Internal Medicine Rheumatology; Visit Provider Internal Medicine Rheumatology
DX: M06.4 Inflammatory polyarthropathy (principal); R51 Headache; Z79.899 Other long term (current) drug therapy
CPT/HCPCS: 36415; 80053; 85025

== ENCOUNTER → 2019-05-20 16:55 | Outpatient (CLI) | payer BC, SELFPAY ==
[2019-05-20 17:49] LABS: Absolute Lymphocyte Count 1.96 X10^3/uL (0.83-4.51); Absolute Neutrophil Count 4.8 X10^3/uL (2.0-7.7); Basophil# 0.03 X10^3/uL; Basophil% 0.4 % (0-1); Eosinophil# 0.09 X10^3/uL; Eosinophils% 1.2 % (0-5); Hematocrit 42.1 % (37-47); Hemoglobin 13.6 g/dL (12.0-15.0); Lymphocyte # 1.96 X10^3/ul (4.0); Lymphocyte % 26.6 % (19-41); Mean Corp Hgb Conc 32.3 g/dL (32-36); Mean Corpuscular Hgb 29.1 pg (27.0-32.0); Mean Platelet Vol. 10.1 fl (6.2-12.0); Monocyte# 0.45 X10^3/uL; Monocyte% 6.1 % (0-10); NRBC Flagged by Analyzer 0 % (0-5); Neutrophil # 4.81 X10^3/uL (2.7-7.7); Neutrophil % 65.4 % (47-70); Platelet Count 260 K/mm3 (150-450); Red Blood Count 4.68 M/mm3 (4.2-5.4); White Blood Count 7.4 K/mm3 (4.4-11.0)
[2019-05-20 18:28] LABS: AST(SGOT) 13 U/L (15-37); Alanine Aminotransfer ALT/SGPT 17 U/L (13-56); Albumin, Serum 3.8 g/dL (3.2-5.0); Alkaline Phosphatase 69 U/L (45-117); Anion Gap 6 (5-15); BUN 17 mg/dL (7-18); BUN/Creat Ratio 27.1 RATIO (10-20); Chloride 105 mmol/L (98-107); Creatinine, Serum 0.63 mg/dL (0.55-1.02); EST Glomerular Filtration Rate 121 mL/min (>60); Est Glom Filt Rate - Afr Amer 147 mL/min (>60); Globulin 3.7 g/dL (2.2-4.2); Glucose 83 mg/dL (74-106); Potassium 3.7 mmol/L (3.5-5.1); Protein, Total 7.5 g/dL (6.4-8.2); Sodium Level 140 mmol/L (136-145)
== END ==
LOC: MTLAB 16:59
PROVIDERS: PCP Family Medicine; Referring Provider Internal Medicine Rheumatology; Visit Provider Internal Medicine Rheumatology
DX: M06.4 Inflammatory polyarthropathy (principal); R51 Headache; Z79.899 Other long term (current) drug therapy
CPT/HCPCS: 36415; 80053; 85025

== ENCOUNTER 2019-08-02 18:12 | Emergency (ER) | payer BC, SELFPAY ==
[2019-08-02 18:13] VITALS: BP 117/75; PULSE 78; RESP 16; TEMP 36.3; O2SAT 99; BMI 21.2
--- NOTE | 2019-08-02 18:31 | ED.VIS.GEN ---
History of Present Illness Chief Complaint: Vag Bld, Preg Narrative: Patient is a 29-year-old female who presents with vaginal bleeding which she describes as spotting. She is 6 weeks and 2 days by dates. She has not yet had an ultrasound. She is G5, P3 with 1 spontaneous with her first . She has had some spotting with her pregnancies since then. She also complains of some mild cramping. She attempted contact her pediatric nephrologist's office but was unable to get in contact with them. She denies recent illness otherwise. Past Medical History - Allergies and Home Meds Allergies/Adverse Reactions: Allergies No Known Allergies Allergy (Verified 08/02/19 18:15) Primary Care Physician: Lucian Henderson III, MD [Primary Care Provider] - Past Medical History: None Smoking Status: Never smoker Review of Systems All systems negative except as indicated General: Denies: Fever Eyes: Denies: Visual changes - bilaterally ENT: Denies: Bilateral ear pain Cardiovascular: Denies: Chest pain Respiratory: Denies: Dyspnea Gastrointestinal: Denies: Nausea, Vomiting Genitourinary: Reports: - - Vaginal bleeding Skin: Denies: Rash Neurological: Denies: Headache Physical Exam Vital Signs/Narrative: Vital Signs Temp Pulse Resp BP Pulse Ox 08/02/19 18:13 97.3 F L 78 16 117/75 99 Inital Vital Signs reviewed: Yes General: Well nourished Head: Normocephalic Eyes: EOMI ENT: Moist mucous membranes Neck: Supple Cardiovascular: Regular rate, Regular rhythm Respiratory: No distress, CTA bilaterally Abdomen: Soft, Nontender Skin: Normal color Neurological: Alert Psychological: Normal affect Diagnostic/Tx/Re-eval - Medical Decision Making Bedside/[id number] transabdominal pelvic ultrasound performed by myself does confirm a live intrauterine with cardiac activity measured at 154 bpm. On review of prior records patient is Rh+. She was reassured. I spoke to her pediatric nephrologist, Dr. Emanuel who agrees with plan for outpatient follow-up. Patient was given return precautions and does understand return for new or worsening symptoms and was discharged home. ED Disposition - Plan for ED Patient: Disposition: Home or Assisted Living Diagnosis: Vaginal bleeding during Instructions: Bleeding During Early Referrals: Lucian Henderson III, MD [Primary Care Provider] -
== END 2019-08-02 18:42 | disposition home or self-care (01) ==
LOC: ED 18:37
PROVIDERS: Emergency Provider Emergency Medicine; PCP Family Medicine
DX: O20.9 Hemorrhage in early pregnancy, unspecified (principal); Z3A.01 Less than 8 weeks gestation of pregnancy
CPT/HCPCS: 99282

== ENCOUNTER 2019-11-02 05:58 | Emergency (ER) | payer SELFPAY ==
[2019-11-02 05:59] VITALS: BP 122/62; PULSE 75; RESP 17; TEMP 37.1; O2SAT 97; BMI 27.6
[2019-11-02] MEDS: MethylPREDNISolone 125 MG/2 ML Vial 80 MG IV (06:57)
[2019-11-02] MEDS: DiphenhydrAMINE 50 MG/ML Syringe 25 MG IV (06:57)
[2019-11-02] MEDS: Famotidine 200 MG/20 ML MDV 20 MG in 0.9% Normal Saline (Pres. free 8 ML 300 MG IV (06:58)
--- NOTE | 2019-11-02 08:15 | ED.DCSUM_ITS ---
History of Present Illness Chief Complaint: Allergic Reaction Informant: Patient Onset: Today Current Severity: Mild Maximum Severity: Mild Narrative: Patient presents with concern for allergic reaction. She ate a strawberry tajik shortly before arrival. Shortly after she started feeling throat numbness and her tongue was tingling. She felt like she had something caught in her throat but notes she did not choke on anything. She is been able to drink water without difficulty. She denies rash or itching. She denies wheezing. She denies known allergy, but states she has family members who are allergic to strawberry. Past Medical History - Allergies and Home Meds Allergies/Adverse Reactions: Allergies strawberry Allergy (Verified 11/02/19 06:03) NEEDS FOLLOW-UP Primary Care Physician: Lucian Henderson III, MD [Primary Care Provider] - Prior records reviewed: Yes Lives: With Family Smoking Status: Never smoker Review of Systems General: Denies: Chills, Fever Eyes: Denies: Visual changes - bilaterally ENT: Denies: Bilateral ear pain Cardiovascular: Denies: Chest pain Respiratory: Denies: Dyspnea, Cough Gastrointestinal: Denies: Abdominal pain, Nausea, Vomiting, Diarrhea Genitourinary: Denies: Dysuria Musculoskeletal: Denies: Extremity Pain Skin: Denies: Rash Neurological: Denies: Headache Hematologic: Denies: Easy bruising, Easy bleeding Allergy: Denies: Uticaria Physical Exam Vital Signs/Narrative: Vital Signs Temp Pulse Resp BP Pulse Ox 11/02/19 05:59 98.8 F 75 17 122/62 H 97 Inital Vital Signs reviewed: Yes General: Well nourished, Well developed Head: Normocephalic ENT: Moist mucous membranes, - - No tongue edema. Posterior pharynx is normal. Patient tolerating secretions well and has a strong voice. Neck: Supple Cardiovascular: Regular rate, Regular rhythm Respiratory: No distress, CTA bilaterally. Negative for: Wheezing Abdomen: Soft, Nontender, - - Gravid Extremities: Nontender Skin: Normal color Neurological: Alert, Oriented x3 Psychological: Normal affect Diagnostic/Tx/Re-eval - Medical Decision Making Patient was observed on alarm security or surveillance monitor. She was given IV Solu-Medrol, Benadryl, and Pepcid. After 1 hour patient is reevaluated and symptoms have improved. She will be given 4 additional days of steroid at home. ED Disposition - Plan for ED Patient: Disposition: Home or Assisted Living Diagnosis: Allergic reaction Instructions: ED General Allergic Reactions Prescriptions: Prednisone [Deltasone] 40 mg PO DAILY #8 tab Transmission Status: Pending to [facility] Referrals: Lucian Henderson III, MD [Primary Care Provider] - 3-5 Days if not improving
[2019-11-02 08:26] VITALS: BP 104/86; PULSE 62; RESP 15; O2SAT 98
== END 2019-11-02 08:27 | disposition home or self-care (01) ==
PROVIDERS: Emergency Provider Emergency Medicine; PCP Family Medicine
DX: T78.40XA Allergy, unspecified, initial encounter (principal); X58.XXXA Exposure to other specified factors, initial encounter; Z84.89 Family history of other specified conditions
CPT/HCPCS: 96374; 96375; 99284; A4216; J3490

== ENCOUNTER 2020-02-22 17:18 | Outpatient (CLI) | payer SELFPAY ==
[2020-02-22 17:27] VITALS: BMI 30.4
[2020-02-22 17:29] VITALS: BP 109/66; PULSE 88; TEMP 36.9; O2SAT 98
--- NOTE | 2020-03-15 09:34 | OB.TRI.NOTE ---
- Problem List (1) 36 weeks gestation of Status: Acute (2) Pelvic pressure in female Status: Acute History of Present Illness Date of Service: 02/22/20 Was patient seen by the physician?: No Reason For Visit: RULE OUT LABOR Final [place]: 03/19/20 Final [place] Source: US <20 weeks Gestational age: 39 Weeks and 3 Days History of Present Illness: Pt with pressure. Here for rule out labor Allergies strawberry Allergy (Verified 11/02/19 06:03) NEEDS FOLLOW-UP Physical Exam Vitals: Vital Signs Temp Pulse BP Pulse Ox 98.5 F 88 109/66 98 02/22/20 17:29 02/22/20 17:29 02/22/20 17:29 02/22/20 17:29 NST - FHR Rate Baby A Baseline: 130 Variability:: Moderate Accelerations:: 15 x 15 Decelerations:: None NST Reactive:: Yes Uterine Activity:: Occasional ctx's Impression/Plan NST reactive Pt not in labor D/c home
== END 2020-02-22 18:12 | disposition home or self-care (01) ==
LOC: WPOUT 17:19 → OBT 17:20
PROVIDERS: PCP Family Medicine; Referring Provider Obstetrics & Gynecology; Visit Provider Obstetrics & Gynecology
DX: O47.1 False labor at or after 37 completed weeks of gestation (principal); Z3A.39 39 weeks gestation of pregnancy
CPT/HCPCS: 59025; 59050; 99218; G0378

== ENCOUNTER 2020-03-08 13:50 | Observation (INO) | payer SELFPAY ==
[2020-03-08 13:58] VITALS: BP 119/69; PULSE 80; TEMP 36.1; O2SAT 97
[2020-03-08] MEDS: Lactated Ringers 1,000 ML 200 ML IV (14:05)
[2020-03-08 14:10] VITALS: BMI 30.7
[2020-03-08 14:30] LABS: Absolute Lymphocyte Count 1.73 X10^3/uL (0.83-4.51); Absolute Neutrophil Count 9.5 X10^3/uL (2.0-7.7); Basophil# 0.03 X10^3/uL; Basophil% 0.2 % (0-1); Eosinophil# 0.07 X10^3/uL; Eosinophils% 0.6 % (0-5); Hematocrit 35.2 % (37-47); Hemoglobin 10.9 g/dL (12.0-15.0); Lymphocyte # 1.73 X10^3/ul (4.0); Lymphocyte % 14.2 % (19-41); Mean Corpuscular Hgb 26.5 pg (27.0-32.0); Mean Corpuscular Volume 85.6 fL (81-99); Monocyte# 0.76 X10^3/uL; Monocyte% 6.2 % (0-10); NRBC Flagged by Analyzer 0 % (0-5); Neutrophil # 9.54 X10^3/uL (2.7-7.7); Neutrophil % 78.1 % (47-70); Platelet Count 266 K/mm3 (150-450); RBC Distribution Width CV 13.8 % (11.6-14.6); RBC Distribution Width SD 43.2 fl (35.1-43.9); Red Blood Count 4.11 M/mm3 (4.2-5.4); White Blood Count 12.2 K/mm3 (4.4-11.0)
--- NOTE | 2020-03-08 15:12 | PCM.HP.OB ---
- Problem List (1) 38 weeks gestation of Status: Acute (2) GBS bacteriuria Status: Acute (3) H/O successful vaginal after , currently Status: Acute (4) Previous section Status: Acute History Date of Admission: 11/02/17 Final [place]: 03/19/20 Final [place] Source: US <20 weeks Gestational age: 38 Weeks and 3 Days History of this : This is a 29 year-old, G [5], P [3013], at 38.3 weeks gestational age sent from office in spontaneous labor. Patient feeling irregular contractions. Denies any loss of fluid or vaginal bleeding. Positive movement. complicated by Rheumatoid Arthritis, GBS bacteremia, and history of C/S with 2 successful VBACs. Allergies strawberry Allergy (Verified 11/02/19 06:03) NEEDS FOLLOW-UP Home Medications: Home Medications 105/Iron/Folic AC/Dha [Prena1 True Combo Pack] 1 ea PO DAILY 08/02/19 Smoking Status: Never smoker Number of Fetus(es): 1 NST - FHR Rate Baby A Baseline: 130 Variability:: Moderate Accelerations:: 15 x 15 Decelerations:: None NST Reactive:: Yes FHR Category:: Category I Uterine Activity:: Irregular contractions History Past Pregnancies: Past Pregnancies Delivery Date Name GA/ Weeks Outcome Route Wt Sex Labor Length Anesthesia Delivery Location Provider FOB Labs: A+ Rubella immune HB- neg HC- neg RPR- NR HIV- NR GBS- positive bacteremia COVID- 19 unknown Expected Delivery Method: Review of Systems Constitutional: Denies: Chills, Fever Cardiovascular: Denies: Chest Pain Respiratory: Denies: Cough Gastrointestinal: Denies: Abdominal Pain Genitourinary: Denies: Dysuria Gynecological: Denies: Vaginal bleeding Physical Exam Vitals: Vital Signs Temp Pulse BP Pulse Ox 97.0 F L 80 119/69 97 03/08/20 13:58 03/08/20 13:58 03/08/20 13:58 03/08/20 13:58 General: Alert, Oriented x3 Cardiovascular: Regular rate Lungs: Normal air movement Abdomen: Soft, Non Tender Neurological: Cranial nerves II-XII grossly intact Cervix Dilation (cm): 4.5 Station: -1 Effacement (%): 70 Assessment/Plan All Active Problems Nausea/vomiting in (Acute) 38 weeks gestation of (Acute) GBS bacteriuria (Acute) H/O successful vaginal after , currently (Acute) Premature rupture of membranes (Acute) Previous section complicating (Resolved) Previous section (Acute) Previous section (Acute) This is a 29 year-old, G [5], P [3013], at 38.3 weeks gestational age sent over from office for labor. Patient initially thought to be in spontaneous labor. Dr. Leija on unit and completed cervical exams x2 with no change. Decision made to discharge patient after extended monitoring and no cervical change. Patient is 38.3 weeks gestation with plans for 3 rd . Patient given labor precautions and agrees with plan of care.
[2020-03-08 15:17] VITALS: TEMP 36.6; O2SAT 98
[2020-03-08 15:19] VITALS: BP 132/71; PULSE 86
[2020-03-08] MEDS: Mag Hydrox/Al Hydrox/Simeth 30 ML UDC PO (15:27)
[2020-03-08 17:25] VITALS: TEMP 36.4
[2020-03-08 17:26] VITALS: BP 114/77; PULSE 92
== END 2020-03-08 17:53 | disposition home or self-care (01) ==
LOC: WP 03-09 06:22
PROVIDERS: Admitting Provider Advanced Practice Midwife; PCP Family Medicine; Visit Provider Advanced Practice Midwife
DX: O62.9 Abnormality of forces of labor, unspecified (principal); Z3A.38 38 weeks gestation of pregnancy; O34.219 Maternal care for unspecified type scar from previous cesarean delivery; N85.8 Other specified noninflammatory disorders of uterus; M06.9 Rheumatoid arthritis, unspecified; O99.820 Streptococcus B carrier state complicating pregnancy
CPT/HCPCS: 96365; 59025; 59050; 85025; 86850; 86900; 86901; 87426; J7120

== ENCOUNTER 2020-03-09 07:08 | Inpatient (IN) | payer SELFPAY ==
[2020-03-08 14:10] VITALS: BMI 30.7
[2020-03-09] VITALS (30 sets, daily range): BP systolic 112–141; BP diastolic 58–86; PULSE 71–104; RESP 16–20; TEMP 36.4–37.1; O2SAT 81–100; BMI 30.7
[2020-03-09] MEDS: Lactated Ringers 1,000 ML 50 ML IV (07:30)
[2020-03-09] MEDS: Lactated Ringers 500 ML 999 ML IV (07:34)
[2020-03-09 07:51] LABS: Absolute Lymphocyte Count 1.64 X10^3/uL (0.83-4.51); Absolute Neutrophil Count 11.8 X10^3/uL (2.0-7.7); Basophil# 0.02 X10^3/uL; Basophil% 0.1 % (0-1); Eosinophil# 0.03 X10^3/uL; Eosinophils% 0.2 % (0-5); Hematocrit 36.3 % (37-47); Hemoglobin 11.6 g/dL (12.0-15.0); Lymphocyte # 1.64 X10^3/ul (4.0); Lymphocyte % 11.4 % (19-41); Mean Corpuscular Hgb 27.3 pg (27.0-32.0); Mean Corpuscular Volume 85.4 fL (81-99); Mean Platelet Vol. 11.1 fl (6.2-12.0); Monocyte# 0.79 X10^3/uL; Monocyte% 5.5 % (0-10); NRBC Flagged by Analyzer 0 % (0-5); Neutrophil # 11.82 X10^3/uL (2.7-7.7); Neutrophil % 82.3 % (47-70); Platelet Count 272 K/mm3 (150-450); RBC Distribution Width SD 42.8 fl (35.1-43.9); Red Blood Count 4.25 M/mm3 (4.2-5.4); White Blood Count 14.4 K/mm3 (4.4-11.0)
--- NOTE | 2020-03-09 07:52 | PCM.HP.OB ---
- Problem List (1) 38 weeks gestation of Status: Acute (2) GBS bacteriuria Status: Acute (3) H/O successful vaginal after , currently Status: Acute History Date of Admission: 11/02/17 Final DALLAS: 03/19/20 Final [place] Source: US <20 weeks Gestational age: 38 Weeks and 4 Days History of this : This is a 29 year-old, G [5], P [3013], at 38.4 weeks gestational age that arrived by squad for contractions and feeling like she needed to push. Denies any loss of fluid or vaginal bleeding. Positive movement. complicated by Rheumatoid Arthritis, GBS bacteremia, and history of C/S with 2 successful VBACs. Allergies strawberry Allergy (Verified 11/02/19 06:03) NEEDS FOLLOW-UP Home Medications: Home Medications 105/Iron/Folic AC/Dha [Prena1 True Combo Pack] 1 ea PO DAILY 08/02/19 Smoking Status: Never smoker Number of Fetus(es): 1 NST - FHR Rate Baby A Baseline: 130 Variability:: Moderate Accelerations:: 15 x 15 Decelerations:: None NST Reactive:: Yes FHR Category:: Category I Uterine Activity:: TOCO not tracing due to maternal movement History Past Pregnancies: Past Pregnancies Delivery Date Name GA/ Weeks Outcome Route Wt Sex Labor Length Anesthesia Delivery Location Provider FOB Labs: A + Rubella- Immune HB-negative HC-negative RPR- NR HIV- NR GC/CH- negative GBS- positive bacteremia COVID-19 antigen- negative on 03/08/20 Expected Delivery Method: Review of Systems Constitutional: Denies: Anorexia, Chills, Fever Cardiovascular: Denies: Chest Pain Respiratory: Denies: Cough, Shortness of Breath Genitourinary: Denies: Dysuria Physical Exam Vitals: Vital Signs Temp Pulse BP Pulse Ox 97.8 F 98 132/86 H 98 03/09/20 07:17 03/09/20 07:17 03/09/20 07:17 03/09/20 07:17 General: Alert, Oriented x3 HEENT: Atraumatic Cardiovascular: Regular rate Lungs: Normal air movement Abdomen: Soft, Non Tender, Gravid Neurological: Cranial nerves II-XII grossly intact Cervix Dilation (cm): 6 Station: -1 Effacement (%): 80 Assessment/Plan All Active Problems Nausea/vomiting in (Acute) 38 weeks gestation of (Acute) GBS bacteriuria (Acute) H/O successful vaginal after , currently (Acute) Premature rupture of membranes (Acute) Previous section complicating (Resolved) Previous section (Acute) Previous section (Acute) This is a 29 year-old, G [5], P [3013], at 38.4 weeks gestational age that arrived via squad for contractions and spontaneous labor. Successful VBACs x2 Plans for 3rd CE-/-1 Admit to labor and delivery Routine labs IV fluids per policy GBS positive- Start PCN 5 million units IV now and PCN 3 million units IV every 4 hours until delivery Epidural when indicated Continuous EFM Dr. Leija in hospital and aware of patient and plan of care
[2020-03-09] MEDS: fentaNYL-bupivacaine (epidural) 100 ML BAG EPIDURAL (08:11)
[2020-03-09] MEDS: Oxytocin 30 units/NS 500 ml 30 UNITS/500 ML IV.SOLN 334 UNITS IV (09:02)
--- NOTE | 2020-03-09 09:08 | PCM.OPRPT ---
Vaginal Delivery Maternal Presentation: Active Labor Amniotic Membrane Rupture Type: Artificial Amniotic Fluid Description: Clear Final DALLAS: 03/19/20 Final [place] Source: US <20 weeks Gestational age: 38 Weeks and 4 Days Date of Procedure: 03/09/20 Pre-Operative Diagnosis: labor Post-Operative Diagnosis: same Surgery/ Procedure Performed: - - Vaginal delivery after delivery Type of Anesthesia: Epidural Description of Procedure: Patient delivered over intact perineum without difficulty. Remainder of delivered with one push in < 15 seconds without difficulty. SPontaneous delivery of placenta intact. Lower uterine segment intact. No lacerations. Time of delivery 0859 am Presentation: VICTORIA Placental Delivery Description: Spontaneous Placenta Disposition: [facility] Cord Vessel Description: 3 Vessels Cord Entanglement: None Drain: - - none Estimated Blood Loss: 200 Infant A gender: Male - Jg (1 minute): 9 (5 minute): 9 Episiotomy Description: None Laceration: None Medications given after delivery: IV Pitocin Complications: None
--- NOTE | 2020-03-09 09:58 | NURSING ---
0955 Urinary Cath discontinued. 400cc clear yellow urine
[2020-03-09] MEDS: Ibuprofen 600 MG Tablet PO (19:43)
[2020-03-10] MEDS: Ibuprofen 600 MG Tablet PO ×3 (02:28→18:39)
[2020-03-10 03:20] VITALS: BP 115/68; PULSE 72; RESP 18; TEMP 36.9
--- NOTE | 2020-03-10 08:02 | PCM.PN.OB ---
Patient Problems: Active and Suspected Problems 38 weeks gestation of (Acute) GBS bacteriuria (Acute) H/O successful vaginal after , currently (Acute) Subjective: mild pain, no N/V. Urinating w/o difficulty - Physical Exam Vitals/I&O's: Vital Signs Temp Pulse Resp BP Pulse Ox 98.5 F 72 18 115/68 81 03/10/20 03:20 03/10/20 03:20 03/10/20 03:20 03/10/20 03:20 03/09/20 08:52 Oxygen Delivery Method Room Air Weight: 81.3 kg Body Mass Index (BMI) 30.7 Intake and Output for Last 24 Hours 03/08/20 03/09/20 03/10/20 23:59 23:59 23:59 Intake Total 1131.66 / 1131.66 Output Total 400 / 400 Balance 731.66 / 731.66 General: Alert, Cooperative, No apparent distress Current Medications Acetaminophen (Acetaminophen 500 Mg Tablet) 1,000 mg PO Q8H PRN PRN PRN Reason: Pain Score 1-10 Bisacodyl (Bisacodyl 10 Mg Suppository) 10 mg RECTAL UD PRN PRN Reason: If no BM Dibucaine (Dibucaine 30 Gm Tube) 1 applic TOPICAL TID PRN PRN; Protocol PRN Reason: Discomfort Hydrocortisone (Hydrocortisone 2.5% Crm) 1 applic TOPICAL TID PRN PRN; Protocol PRN Reason: Discomfort Ibuprofen (Ibuprofen 600 Mg Tablet) 600 mg PO Q6H PRN PRN PRN Reason: Pain Score 1-10 Last Admin: 03/10/20 02:28 Dose: 600 mg Documented by: Methylergonovine Maleate (Methylergonovine 0.2 Mg/Ml Ampul) 0.2 mg IM X1 PRN PRN Reason: Excess bleeding/uterine atony Ondansetron HCl (Ondansetron 4 Mg/2 Ml Vial) 4 mg IV Q4H PRN PRN PRN Reason: Nausea Prochlorperazine Edisylate (Prochlorperazine 10 Mg/2 Ml Vial) 10 mg IV Q6H PRN PRN PRN Reason: NAUSEA/VOMITING Senna/Docusate Sodium (Senna/Docusate Sodium 1 Tablet) 1 - 2 tablet PO DAILY PRN PRN PRN Reason: Constipation Simethicone (Simethicone 80 Mg Tablet) 80 mg PO PCHS PRN PRN Reason: Indigestion/Stomach pain Sodium Chloride (0.9% Saline Lock 10 Ml Syringe) 5 - 15 ml IV UD PRN PRN Reason: SALINE FLUSH Medical Necessity - Tobacco Use Smoking Status: Never smoker Assessment/Plan All Active Problems Nausea/vomiting in (Acute) 38 weeks gestation of (Acute) GBS bacteriuria (Acute) H/O successful vaginal after , currently (Acute) Premature rupture of membranes (Acute) Previous section complicating (Resolved) Previous section (Acute) Previous section (Acute) PPD#1 s/p successful doing well nursing and doing well likely d/c home tomorrow (no d/c today as did not have full GBS prophylaxis)
[2020-03-10 09:08] VITALS: BP 136/80; PULSE 85; RESP 16; TEMP 36.7
[2020-03-10 15:04] VITALS: BP 129/67; PULSE 80; RESP 16; TEMP 36.6
[2020-03-10 20:00] VITALS: BP 119/72; PULSE 80; RESP 16; TEMP 36.3
[2020-03-11 02:47] VITALS: BP 121/69; PULSE 80; RESP 14; TEMP 37.1
[2020-03-11] MEDS: Ibuprofen 600 MG Tablet PO (06:10)
--- NOTE | 2020-03-11 07:41 | PCM.PN.OB ---
Patient Problems: Active and Suspected Problems 38 weeks gestation of (Acute) GBS bacteriuria (Acute) H/O successful vaginal after , currently (Acute) Subjective: Pain well controlled, average lochia - Physical Exam Vitals/I&O's: Vital Signs Temp Pulse Resp BP Pulse Ox 98.7 F 80 14 121/69 H 81 03/11/20 02:47 03/11/20 02:47 03/11/20 02:47 03/11/20 02:47 03/09/20 08:52 Oxygen Delivery Method Room Air Weight: 81.3 kg Body Mass Index (BMI) 30.7 Intake and Output for Last 24 Hours 03/09/20 03/10/20 03/11/20 23:59 23:59 23:59 Intake Total 1131.66 / 1131.66 Output Total 400 / 400 Balance 731.66 / 731.66 General: Alert, Cooperative, No apparent distress Current Medications Acetaminophen (Acetaminophen 500 Mg Tablet) 1,000 mg PO Q8H PRN PRN PRN Reason: Pain Score 1-10 Bisacodyl (Bisacodyl 10 Mg Suppository) 10 mg RECTAL UD PRN PRN Reason: If no BM Dibucaine (Dibucaine 30 Gm Tube) 1 applic TOPICAL TID PRN PRN; Protocol PRN Reason: Discomfort Hydrocortisone (Hydrocortisone 2.5% Crm) 1 applic TOPICAL TID PRN PRN; Protocol PRN Reason: Discomfort Ibuprofen (Ibuprofen 600 Mg Tablet) 600 mg PO Q6H PRN PRN PRN Reason: Pain Score 1-10 Last Admin: 03/11/20 06:10 Dose: 600 mg Documented by: Methylergonovine Maleate (Methylergonovine 0.2 Mg/Ml Ampul) 0.2 mg IM X1 PRN PRN Reason: Excess bleeding/uterine atony Ondansetron HCl (Ondansetron 4 Mg/2 Ml Vial) 4 mg IV Q4H PRN PRN PRN Reason: Nausea Prochlorperazine Edisylate (Prochlorperazine 10 Mg/2 Ml Vial) 10 mg IV Q6H PRN PRN PRN Reason: NAUSEA/VOMITING Senna/Docusate Sodium (Senna/Docusate Sodium 1 Tablet) 1 - 2 tablet PO DAILY PRN PRN PRN Reason: Constipation Simethicone (Simethicone 80 Mg Tablet) 80 mg PO PCHS PRN PRN Reason: Indigestion/Stomach pain Sodium Chloride (0.9% Saline Lock 10 Ml Syringe) 5 - 15 ml IV UD PRN PRN Reason: SALINE FLUSH Medical Necessity - Tobacco Use Smoking Status: Never smoker Assessment/Plan All Active Problems Nausea/vomiting in (Acute) 38 weeks gestation of (Acute) GBS bacteriuria (Acute) H/O successful vaginal after , currently (Acute) Premature rupture of membranes (Acute) Previous section complicating (Resolved) Previous section (Acute) Previous section (Acute) day #2 status post successful vaginal after delivery. Patient is doing well. is doing well. Plans tubal ligation with concurrent umbilical hernia repair for sterilization. We will schedule this at her 6-week appointment. Follow-up in the office in 1-2 in 6 weeks or as needed.
--- NOTE | 2020-03-11 07:42 | DCINST_ITS ---
Discharge Diet: No Restrictions Discharge Activity: Return to Normal Activity, May not drive while taking narcotic pain medications., May Shower May resume sexual activity in: 4-6 weeks Additional Activity Instructions:: Nothing in the vagina for 4-6 weeks. You may return to work/school in 6 weeks. Call your doctor if your incision/area has: Continuous Slow Oozing, Sudden Increased Bleeding, Increased Pain/ Swelling, Increased Redness, Foul Smelling Discharge Additional Instructions: If you experience any of the following, contact your healthcare provider. * Bleeding that soaks a pad every hour for 2 hours * Fever 100.4 or higher * Unrelieved incision or abdominal pain * Swelling, redness, discharge or bleeding from your incision or episiotomy site * Your incision begins to separate * Problems urinating (including inability to urinate or burning while urinating). * Visual changes * Severe headache * Flu-like symptoms * Pain or redness in one of both of your breasts * Pain, warmth, tenderness or swelling in your legs, especially the calf area * Frequent nausea and vomiting * Symptoms of depression or anxiety If you experience any of the following, call 911 or go to the nearest Emergency Room. * Chest pain * Problems breathing * Seizure activity * Partial or complete paralysis of a body part, slurred speech, weakness or drooping of the face, or a sudden inability to walk or hold your balance Allergies/Adverse Reactions: Allergies strawberry Allergy (Verified 11/02/19 06:03) NEEDS FOLLOW-UP Medications to take at Discharge 105/Iron/Folic AC/Dha [Prena1 True Combo Pack] 1 ea PO DAILY 08/02/19 Ibuprofen [Motrin] 600 mg PO Q6H PRN #60 tab 03/11/20 The following prescriptions were given: Ibuprofen [Motrin] 600 mg PO Q6H PRN #60 tab PRN Reason: Pain Transmission Status: [facility] to [facility] Please Follow Up With: Teressa German MD - [phone] When: Call to make an appointment with your provider's office in 1-2 and 6 weeks or as needed Primary Care Physician: Lucian Henderson III, MD [Primary Care Provider] - Test Results: Test results from this visit will be discussed in further detail at your follow- up appointment, if applicable.
--- NOTE | 2020-03-11 07:42 | PCM.DCVAG ---
Discharge Diet: No Restrictions Discharge Activity: Return to Normal Activity, May not drive while taking narcotic pain medications., May Shower May resume sexual activity in: 4-6 weeks Additional Activity Instructions:: Nothing in the vagina for 4-6 weeks. You may return to work/school in 6 weeks. Call your doctor if your incision/area has: Continuous Slow Oozing, Sudden Increased Bleeding, Increased Pain/ Swelling, Increased Redness, Foul Smelling Discharge Additional Instructions: If you experience any of the following, contact your healthcare provider. Bleeding that soaks a pad every hour for 2 hours Fever 100.4 or higher Unrelieved incision or abdominal pain Swelling, redness, discharge or bleeding from your incision or episiotomy site Your incision begins to separate Problems urinating (including inability to urinate or burning while urinating). Visual changes Severe headache Flu-like symptoms Pain or redness in one of both of your breasts Pain, warmth, tenderness or swelling in your legs, especially the calf area Frequent nausea and vomiting Symptoms of depression or anxiety If you experience any of the following, call 911 or go to the nearest Emergency Room. Chest pain Problems breathing Seizure activity Partial or complete paralysis of a body part, slurred speech, weakness or drooping of the face, or a sudden inability to walk or hold your balance Allergies/Adverse Reactions: Allergies strawberry Allergy (Verified 11/02/19 06:03) NEEDS FOLLOW-UP Medications to take at Discharge 105/Iron/Folic AC/Dha [Prena1 True Combo Pack] 1 ea PO DAILY 08/02/19 Ibuprofen [Motrin] 600 mg PO Q6H PRN #60 tab 03/11/20 The following prescriptions were given: Ibuprofen [Motrin] 600 mg PO Q6H PRN #60 tab PRN Reason: Pain Transmission Status: [facility]ending to [facility] Please Follow Up With: Teressa German MD - [phone] When: Call to make an appointment with your provider's office in 1-2 and 6 weeks or as needed Primary Care Physician: Lucian Henderson III, MD [Primary Care Provider] - Test Results: Test results from this visit will be discussed in further detail at your follow-up appointment, if applicable.
[2020-03-11 07:55] VITALS: BP 127/79; PULSE 70; RESP 16; TEMP 36.6
== END 2020-03-11 12:57 | disposition home or self-care (01) | DRG 806 ==
PROVIDERS: Advanced Practice Midwife; Admitting Provider Obstetrics & Gynecology; PCP Family Medicine; Visit Provider Obstetrics & Gynecology
DX: O34.219 Maternal care for unspecified type scar from previous cesarean delivery (principal); R78.81 Bacteremia; Z37.0 Single live birth; O99.824 Streptococcus B carrier state complicating childbirth; O99.892 Other specified diseases and conditions complicating childbirth; M06.9 Rheumatoid arthritis, unspecified; Z3A.38 38 weeks gestation of pregnancy
CPT/HCPCS: 59025; 59050; 85025; 99218; J7120; G0378

== ENCOUNTER 2021-08-30 21:48 | Emergency (ER) | payer MEDICAID, SELFPAY ==
[2021-08-30 21:48] VITALS: BP 122/94; PULSE 92; RESP 16; TEMP 36.4; O2SAT 100; BMI 20.9
--- NOTE | 2021-08-30 22:00 | CT_ITS ---
STUDY: CT ABDOMEN AND PELVIS WITHOUT CONTRAST ENHANCEMENT OF 2252 HOURS ON 08/30/2021 REASON FOR EXAM: 31-year-old female with right lower quadrant pain. RADIATION DOSAGE (If Supplied By Facility): CTDIvol = ( 6.09 ) mGy, DLP = ( 267.88 ) mGycm TECHNIQUE: Transaxial images were obtained from the dome of the diaphragm to the symphysis pubis without oral contrast, and without intravenous contrast. Sagittal and coronal images were reconstructed. Individualized dose optimization techniques were used for this CT. COMPARISON: None. FINDINGS: The visualized lung bases are unremarkable. The visualized portions of the heart are within normal limits. Mild pectus excavatum. 6 cm diameter cyst in the dome of the liver. Mild hepatomegaly. Normal gallbladder and extrahepatic biliary system; no cholelithiasis or cholecystitis.. Normal spleen. Normal pancreas. Normal bilateral adrenal glands. Normal kidneys without obstructive uropathy. Normal visualized stomach. Normal small intestine. Mild to moderate constipation. No diverticulitis, colitis, or intestinal obstruction. The appendix is visualized and appears normal. Normal abdominal aorta. Normal inferior vena cava. Normal retroperitoneum. Normal urinary bladder. Tampon in the vagina. Mildly enlarged anteverted uterus. No ovarian cystic or solid masses. Normal abdominal wall. There is no evidence of abscesses or solid mass lesions. Normal osseous structures. There is an old fracture of the anterior-superior aspect of the L4 vertebra. CT/Abdomen/Pelvis without Cont IMPRESSION: 1. [id number]-plopzywu constipation. 2. No appendicitis, diverticulitis, colitis, or intestinal obstruction. 3. No cholecystitis or pancreatitis. 4. Normal kidneys without obstructive uropathy. 5. Mildly enlarged anteverted uterus. No ovarian cystic or solid mass lesions. 6. Tampon noted in the vagina. 7. Mild hepatomegaly. 8. Pectus excavatum. 9. No abscesses or solid mass lesions. Electronically Signed: Delmer Ferguson MD at 23:15 EDT ,
--- NOTE | 2021-08-30 22:02 | EX.ED.DYSGE1 ---
HPI History of Present Illness Chief Complaint: Flank Pain Informant: patient Onset/Context/Timing Onset: Weeks Context: Gradual Onset Current Severity: Moderate Maximum Severity: Moderate Narrative Narrative: Patient presents with several week history of right lower quadrant abdominal pain. She states it wraps around into her right lower back and just recently started radiating into the proximal thigh. She denies fever or chills. No urinary or GI symptoms. She has not taken anything for pain at home. She has had prior tubal ligation. PFSH PFSH Home Medications naproxen [Naprosyn] 500 mg PO BID PRN #20 tab 08/30/21 [Rx Last Taken Unknown] polyethylene glycol 3350 [Miralax] 17 g PO DAILY #30 ea 08/30/21 [Rx Last Taken Unknown] Allergy/AdvReac Type Severity Reaction Status Date / Time No Known Allergies Allergy Verified 08/30/21 21:50 Surgical History H/O tubal ligation Social History Smoking Status: Never smoker ROS ROS ED Constitutional Constitutional ED: Denies chills or fever(s) Eyes Eyes: Denies change in vision ENT ENT ED: Denies sore throat Cardiovascular Cardiovascular: Denies chest pain Respiratory/Chest Respiratory/Chest: Denies cough or dyspnea Gastrointestinal Gastrointestinal: Reports abdominal pain; Denies diarrhea, nausea or vomiting Genitourinary Genitourinary ED: Denies dysuria or hematuria Musculoskeletal Musculoskeletal: Reports back pain Integumentary Denies rash Neurologic Neurologic: Denies headache(s), paresthesias or weakness Allergic/Immunologic Allergic/Immunologic ED: Denies urticaria EXAM Physical Exam Const Vital Signs: 08/30/21 21:48 08/30/21 22:24 Temperature 97.5 F L Temperature Source Temporal Pulse Rate 92 Respiratory Rate 16 Respiratory Effort Normal Blood Pressure 122/94 H Blood Pressure Mean 103 Pulse Ox 100 Oxygen Delivery Method Room Air Positive well nourished and well developed General Appearance ED: well developed HEENT Reports moist mucous membranes Eyes PERRL and EOMs intact bilaterally Neck supple Chest Wall inspection of chest normal and palpation of chest normal Resp normal respiratory effort and clear to auscultation bilaterally Cardio regular rate and regular rhythm GI Auscultation: hypoactive bowel sounds Palpation: soft and tender RLQ; Negative for guarding or rebound tenderness present Back/Spine no CVA tenderness Extremity normal to inspection Neuro oriented x3 Sensorium / Orientation: alert Psych mental status grossly normal Skin no rashes or lesions noted MDM MDM MDM Narrative Medical decision making narrative: Patient was given Toradol and IV fluids. Lab work, urinalysis, CT flank obtained. Lab Data Attestation: I reviewed the patient's lab results. Labs: Laboratory Results - last 24 hr 08/30/21 08/30/21 08/30/21 22:05 22:10 22:10 WBC 8.7 RBC 4.50 Hgb 13.6 Hct 40.7 MCV 90.4 MCH 30.2 MCHC 33.4 RDW Std Deviation 40.2 RDW Coeff of Faustina 12.3 Plt Count 218 MPV 10.4 Immature Gran % (Auto) 0.300 Neut % (Auto) 62.9 Lymph % (Auto) 24.9 Perkins % (Auto) 10.0 Eos % (Auto) 1.6 Baso % (Auto) 0.3 Absolute Neuts (auto) 5.5 Absolute Lymphs (auto) 2.16 Nucleated RBC % 0 Sodium 141 Potassium 3.2 L Chloride 106 Carbon Dioxide 29.0 Anion Gap 6 BUN 13 Creatinine 0.66 Estim Creat Clear Calc 108.61 Est GFR (MDRD) Af Amer 137 Est GFR (MDRD) Non-Af 113 BUN/Creatinine Ratio 19.8 Glucose 98 Calcium 8.7 Urine Color Yellow Urine Clarity Clear Urine pH 7.0 Ur Specific [place] 1.010 Urine Protein Negative Urine Glucose (UA) Normal Urine Ketones Negative Urine Occult Blood 25 H Urine Nitrite Negative Urine Bilirubin Negative Urine Urobilinogen Normal Ur Leukocyte Esterase Negative Urine RBC 0 SEEN Urine WBC 0 SEEN Ur Squamous Epith Cells 0 SEEN Urine Bacteria 0 SEEN Urine Mucus 0 SEEN Radiography Diagnostic Testing: Clinical Impression(s) from Imaging Studies Abdomen/Pelvis CT 08/30/21 22:00 IMPRESSION: 1. Wmuq-ni-rugxjpod constipation. 2. No appendicitis, diverticulitis, colitis, or intestinal obstruction. 3. No cholecystitis or pancreatitis. 4. Normal kidneys without obstructive uropathy. 5. Mildly enlarged anteverted uterus. No ovarian cystic or solid mass lesions. 6. Tampon noted in the vagina. 7. Mild hepatomegaly. 8. Pectus excavatum. 9. No abscesses or solid mass lesions. Electronically Signed: Delmer Ferguson MD at 23:15 EDT , Treatment and Re-Evaluation Narrative: On repeat evaluation patient resting comfortably. Lab work reviewed with her and unremarkable other than slightly low potassium at 3.2. Urinalysis normal. CT scan does reveal mild to moderate constipation. Appendix is visualized and is normal. No evidence of ovarian cyst. These results are discussed with the patient. She will be written for naproxen as well as MiraLAX to help clean her out. This will not make her sleepy and she will be able to care for her children. Return instructions provided. Discharge Plan Triage Chief Complaint: Flank Pain ED Provider: Lola Jimenez Dx/Rx/DC Orders Clinical Impression: Abdominal pain, Constipation Instructions: ED Abdominal Pain Unkn Cause Fem, ED Constipation (Adult) Prescriptions: New naproxen [Naprosyn] 500 mg tablet 500 mg PO BID PRN (Reason: pain) Qty: 20 RF: 0 polyethylene glycol 3350 [Miralax] 17 gram powder in packet 17 g PO DAILY Qty: 30 RF: 0 Primary Care Provider: Care Physician,No Primary Referrals: Shanice Landon MD [STAFF PHYSICIAN] - 1-2 Weeks Care Physician,No Primary [Primary Care Provider] - Disposition Disposition: Home, Self Care
[2021-08-30] MEDS: Ketorolac 30 MG/ML Syringe IV (22:19)
[2021-08-30 22:21] LABS: Bacteria 0 SEEN /hpf (None Seen); Mucous, Urine 0 SEEN /hpf (<or=2+); Red Blood Cells-Urine 0 SEEN /hpf (0-5); Squamous Epithelial Cells - UA 0 SEEN /hpf (5-10); White Blood Cells 0 SEEN /hpf (0-5)
[2021-08-30] MEDS: 0.9% Normal Saline 1,000 ML 150 ML IV (22:22)
[2021-08-30 22:24] LABS: Absolute Lymphocyte Count 2.16 X10^3/uL (0.83-4.51); Absolute Neutrophil Count 5.5 X10^3/uL (2.0-7.7); Basophil# 0.03 X10^3/uL; Basophil% 0.3 % (0-1); Eosinophil# 0.14 X10^3/uL; Eosinophils% 1.6 % (0-5); Hematocrit 40.7 % (37-47); Hemoglobin 13.6 g/dL (12.0-15.0); Lymphocyte # 2.16 X10^3/ul (0.83-4.51); Lymphocyte % 24.9 % (19-41); Mean Corp Hgb Conc 33.4 g/dL (32-36); Mean Corpuscular Hgb 30.2 pg (27.0-32.0); Mean Corpuscular Volume 90.4 fL (81-99); Mean Platelet Vol. 10.4 fl (6.2-12.0); Monocyte# 0.87 X10^3/uL; NRBC Flagged by Analyzer 0 % (0-5); Neutrophil # 5.46 X10^3/uL (2.7-7.7); Neutrophil % 62.9 % (47-70); Platelet Count 218 K/mm3 (150-450); RBC Distribution Width CV 12.3 % (11.6-14.6); RBC Distribution Width SD 40.2 fl (35.1-43.9); White Blood Count 8.7 K/mm3 (4.4-11.0)
[2021-08-30 22:26] LABS: Color, Urine Yellow (Yellow); Glucose, Dipstick Normal (Normal); Ketone-Dipstick Negative (Negative); Leukocyte Esterase-Dipstick Negative /ul (Negative); Nitrite-Dipstick Negative (Negative); Occult Blood-Urine 25 /ul (Negative); Protein-Dipstick Negative (Negative); Urine Bilirubin Dipstick Negative (Negative); Urine Clarity Clear (Clear); Urine Urobilinogen Normal (Normal)
[2021-08-30 22:40] LABS: Anion Gap 6 (5-15); BUN 13 mg/dL (7-18); BUN/Creat Ratio 19.8 RATIO (10-20); Calcium,Total 8.7 mg/dL (8.5-10.1); Chloride 106 mmol/L (98-107); Creatinine, Serum 0.66 mg/dL (0.55-1.02); EST Glomerular Filtration Rate 113 mL/min (>60); Est Glom Filt Rate - Afr Amer 137 mL/min (>60); Estimated Creatinine Clearance 108.61 ml/min; Glucose 98 mg/dL (74-106); Potassium 3.2 mmol/L (3.5-5.1); Sodium Level 141 mmol/L (136-145)
== END 2021-08-30 23:35 | disposition home or self-care (01) ==
PROVIDERS: Emergency Provider Emergency Medicine; Visit Provider Emergency Medicine
DX: K59.00 Constipation, unspecified (principal)
CPT/HCPCS: 74176; 80048; 81001; 85025; 96361; 96374; 99285; A4216

== ENCOUNTER 2022-03-16 18:05 | Emergency (ER) | payer MEDICAID, SELFPAY ==
[2022-03-16 18:05] VITALS: BP 127/86; PULSE 76; RESP 18; TEMP 36.4; O2SAT 100; BMI 22.3
--- NOTE | 2022-03-16 18:25 | EDS_ITS ---
HPI History of Present Illness Chief Complaint: Back Narrative Narrative: 31-year-old female past medical history of mild scoliosis presents with low back pain that began in the middle of the night at 230 this morning, approximately 16 hours ago. She states that she has pain in her low back that radiates upward on her spine. She denies any fevers or chills. No nausea or vomiting. She denies any dysuria or hematuria, no loss of bowel or bladder, no problems with diarrhea or constipation. She denies any red flag signs, the pain does not radiate down her leg. She took Advil in the morning, then again at 8:00 in the morning without relief of her symptoms. Pain is worse with any sort of movement. She denies any saddle anesthesia. She presents because of the low back pain. She did state that she becomes nauseated and vomited a few times without hematemesis secondary to her pain. PFSH PFSH Home Medications cyclobenzaprine 10 mg tablet 10 mg PO TID PRN muscle spasm #20 tabs 03/16/22 [Rx Last Taken Unknown] naproxen 500 mg tablet (Naprosyn) 500 mg PO BID PRN pain #20 tabs 03/16/22 [Rx Last Taken Unknown] Allergy/AdvReac Type Severity Reaction Status Date / Time No Known Allergies Allergy Verified 03/16/22 18:08 Surgical History H/O tubal ligation Social History Smoking Status: Never smoker ROS ROS ED ROS Narrative Constitutional: No fever, no chills. HEENT: No sore throat. No neck pain. No loss of vision. No rhinorrhea. Cardiovascular: No chest pain. No palpitations. No pedal edema. Respiratory: No cough, no shortness of breath. Abdominal: No abdominal pain. She states that she gets nauseated and vomited a few times without any blood in her emesis secondary to pain. Genitourinary: No dysuria. No hematuria. Musculoskeletal: No myalgias. No arthralgias. Positive low back pain radiating towards hips and upper spine. Neurologic: No headaches. No dizziness. No lightheadedness. No saddle anesthesia, no loss of bowel or bladder. Skin: No rash. No change in color. Psychiatric: No depression. No anxiety. EXAM Physical Exam Narrative Exam Narrative: Afebrile. Vital signs noted. HEENT: Normocephalic. Atraumatic. PERRL, EOMI. Neck soft and supple. No point tenderness or step off. Cardiovascular: Regular rate and rhythm. No murmurs, rubs, or gallops appreciated. Respiratory: No tachypnea. Lungs clear to auscultation bilaterally. Gastrointestinal: Abdomen soft, nontender, with normoactive bowel sounds. No rebound or guarding. Neurological: Awake. Alert. Nonfocal, nonlateralizing. Neurovascular intact bilateral lower extremities. Patellar DTRs equal and symmetric. Straight leg raising in a supine position is negative. Skin: No rash. Normal color. No pallor. Musculoskeletal: No pedal edema. Full range of motion extremities. Diffuse tenderness to palpation lumbar spine area, no was noted step-off. Const Vital Signs: 03/16/22 18:05 Temperature 97.6 F L Temperature Source Temporal Pulse Rate 76 Respiratory Rate 18 Blood Pressure 127/86 H Blood Pressure Mean 99 Pulse Ox 100 Oxygen Delivery Method Room Air MDM MDM MDM Narrative Medical decision making narrative: I see no red flag signs for cauda equina or need for emergent MRI. I will obtain x-rays of her back. We discussed the use of heat and ice application and muscle relaxers like Flexeril. She will continue her [id number]-kazlatv anti- inflammatories. She has had bilateral tubal ligation. I do not feel that test is indicated. X-rays obtained of the lumbar spine interpreted by myself show minor scoliosis, no evidence of fracture. At this point in time, she was given Flexeril and naproxen here in the emergency department and prescriptions written for both. She will follow-up with her primary care provider. I do feel that this is more of a musculoskeletal back pain, and that she can be discharged safely home with follow-up to her primary care provider. Return instructions were reviewed. Disposition is discharged home in stable condition. Radiography Diagnostic Testing: Clinical Impression(s) from Imaging Studies Lumbar Spine X-Ray 03/16/22 19:00 IMPRESSION: Minor levoscoliosis possibly splinting due to muscle spasm. There is mild multilevel spondylosis. No acute fracture Electronically Signed: Simon Peres MD at 19:24 EST , Discharge Plan Triage Chief Complaint: Back ED Provider: Dwayne Peterson Dx/Rx/DC Orders Clinical Impression: Back pain, Lumbar paraspinal muscle spasm Instructions: ED Back Pain (Acute or Chronic), ED Back Spasm, No Trauma Prescriptions: New cyclobenzaprine 10 mg tablet 10 mg PO TID PRN (Reason: muscle spasm) Qty: 20 0RF naproxen [Naprosyn] 500 mg tablet 500 mg PO BID PRN (Reason: pain) Qty: 20 0RF Primary Care Provider: Care Physician,No Primary Referrals: Eve Vega DO [Med Staff - Active Staff] - As soon as possible Care Physician,No Primary [Primary Care Provider] - Activity Restrictions/Additional Instructions: Follow-up with your primary care provider soon as possible. If you do not have 1, try to follow-up with Dr. Vega. Disposition Disposition: Home, Self Care
--- NOTE | 2022-03-16 19:00 | RAD_ITS ---
STUDY: X-RAY - LUMBAR SPINE REASON FOR EXAM: Female, 31 years old. Pain TECHNIQUE: 3 view(s) of the lumbar spine were obtained. COMPARISON: None FINDINGS: Normal lumbar lordosis. Minor levoscoliosis deformity or splinting secondary to muscle spasm. There is a normal alignment of the vertebrae. Minor wedging of superior endplate of L2 most likely chronic.. Mildly narrowed L3 and L4 disc spaces. Unfused ossification center of the anterior superior endplate of L4 likely developmental or due to old trauma. The soft tissue structures are unremarkable. RAD/Lumbar Spine 2 or 3 Views IMPRESSION: Minor levoscoliosis possibly splinting due to muscle spasm. There is mild multilevel spondylosis. No acute fracture Electronically Signed: Simon Peres MD at 19:24 EST ,
[2022-03-16] MEDS: cycloBENZAPRine HCl 10 MG Tablet PO (19:47)
[2022-03-16 19:53] VITALS: PULSE 76; RESP 18; O2SAT 97
== END 2022-03-16 19:54 | disposition home or self-care (01) ==
PROVIDERS: Emergency Provider Emergency Medicine; Visit Provider Emergency Medicine
DX: M62.830 Muscle spasm of back (principal); M54.9 Dorsalgia, unspecified
CPT/HCPCS: 72100; 99283

== ENCOUNTER 2023-09-27 12:38 | Emergency (ER) | payer MEDICAID, SELFPAY ==
[2023-09-27 12:39] VITALS: BP 122/95; PULSE 85; RESP 16; TEMP 36.1; O2SAT 98; BMI 21.7
--- NOTE | 2023-09-27 12:41 | RAD_ITS ---
INDICATION: PAIN EXAMINATION/TECHNIQUE: X-RAY - LEFT XR Shoulder Min 2 Views 4 VIEWS COMPARISON: No relevant prior comparison study available FINDINGS: SOFT TISSUES: No soft tissue swelling or gas. Metallic densities overlying the lower chest and left axilla. BONES/JOINTS: No acute fracture or subluxation.. Normal alignment. Preservation of the joint space.. No sclerotic or destructive changes observed. RAD/Shoulder min 2 Views IMPRESSION: No evidence of acute fracture or dislocation. Electronically Signed: Norberto Pate MD at 13:32 EDT ,
--- NOTE | 2023-09-27 12:58 | EDS_ITS ---
HPI History of Present Illness Chief Complaint: Upper Extremity Injury Narrative Narrative: 33-year-old female with left shoulder pain. She states has had this for months. She denies any trauma. She states that 1 day she woke up with pain in the shoulder. It hurts when she lays on the left side when she tries to sleep at night. It hurts when she lays on her back as well. No numbness or tingling. No direct trauma to the shoulder. Patient has not seen anybody for this. She states she previously made an appointment to see her PCP but her arm started to get better and when she did go to the appointment she noticed that the pain came back. Patient is using ibuprofen at home for pain. [facility] Home Medications ?Medication ?Instructions ?Recorded ?Last Taken ?Type cyclobenzaprine 10 mg tablet 10 mg PO TID PRN muscle spasm #20 03/16/22 Unknown Rx tabs naproxen 500 mg tablet (Naprosyn) 500 mg PO BID PRN pain #20 tabs 03/16/22 Unknown Rx cyclobenzaprine 10 mg tablet 10 mg PO TID PRN Muscle Spasm #20 09/27/23 Unknown Rx TABLETS naproxen 500 mg tablet (Naprosyn) 500 mg PO BID PRN pain #20 tabs 09/27/23 Unknown Rx Allergy/AdvReac Type Severity Reaction Status Date / Time No Known Allergies Allergy Verified 09/27/23 12:40 Surgical History H/O tubal ligation Social History Smoking Status: Never smoker [facility] ED Constitutional Constitutional ED: Denies chills, fever(s) or sweats Eyes Eyes: Denies blurry vision or change in vision ENT ENT ED: Denies ear pain or sore throat Cardiovascular Cardiovascular: Denies chest pain, palpitations or racing heartbeat Respiratory/Chest Respiratory/Chest: Denies cough, dyspnea or sputum Gastrointestinal Gastrointestinal: Denies abdominal pain, constipation, diarrhea, nausea or vomiting Genitourinary Genitourinary ED: Denies dysuria, hematuria or urinary frequency Musculoskeletal Musculoskeletal: Reports other Details: Left shoulder pain ; Denies arthralgias, myalgias or neck pain Integumentary Denies abscess, Abrasions or rash Neurologic Neurologic: Denies headache(s), paresthesias or weakness Psychiatric Psychiatric: Denies anxiety, depression, suicidal ideation or suicidal thoughts Endocrine Endocrinology: Denies polydipsia or polyuria EXAM Physical Exam Const Vital Signs: 09/27/23 12:39 Temperature 96.9 F L Temperature Source Temporal Pulse Rate 85 Respiratory Rate 16 Blood Pressure 122/95 H Blood Pressure Mean 104 Pulse Ox 98 Oxygen Delivery Method Room Air Positive well nourished General Appearance ED: NAD HEENT Reports moist mucous membranes normocephalic Resp normal respiratory effort Cardio regular rate and regular rhythm Extremity Extremity Narrative: Tenderness to palpation of the left shoulder over the deltoid. There is pain with flexion, extension. Patient is able to abduct the shoulder although painful. There is pain noted over the posterior aspect of the shoulder blade laterally. No crepitance. No rashes. No bruising. Neuro oriented x3 and CN's II-XII intact bilaterally Sensorium / Orientation: alert Motor Exam: strength 5/5 throughout Psych mental status grossly normal MDM MDM MDM Narrative Medical decision making narrative: Patient presenting with shoulder pain and left shoulder. It is nontraumatic. She has had this for months. She went to urgent care to get it evaluated today and they stated that they do not have an x-ray on the weekend so they sent her to the emergency room. X-ray of the left shoulder on my interpretation shows no acute fracture or subluxation. Radiology interpreted this and agreed I recommended that she follow-up with her PCP and I will give her a referral for orthopedics as this is a chronic condition. I do not think narcotics are warranted. I offered her muscle relaxer and Naprosyn which she is amenable to. Patient is given referral discharged stable condition. Impression: 1. Left shoulder strain Discharge Plan Triage Chief Complaint: Upper Extremity Injury ED Provider: Sj Flannery Dx/Rx/DC Orders Instructions: ED Shoulder Sprain Prescriptions: New cyclobenzaprine 10 mg tablet 10 mg PO TID PRN (Reason: Muscle Spasm) Qty: 20 0RF naproxen [Naprosyn] 500 mg tablet 500 mg PO BID PRN (Reason: pain) Qty: 20 0RF No Action cyclobenzaprine 10 mg tablet 10 mg PO TID PRN (Reason: muscle spasm) Qty: 20 0RF naproxen [Naprosyn] 500 mg tablet 500 mg PO BID PRN (Reason: pain) Qty: 20 0RF Primary Care Provider: Care Physician,No Primary Referrals: Yobani Mcdaniel MD [Med Staff - Active Staff] - Care Physician,No Primary [Primary Care Provider] - Print Language: Thai Disposition Disposition: Home, Self Care
[2023-09-27] MEDS: Naproxen 500 MG Tablet PO (13:45)
[2023-09-27] MEDS: cycloBENZAPRine HCl 10 MG Tablet PO (13:45)
[2023-09-27 13:47] VITALS: BP 116/95; PULSE 80; RESP 18; TEMP 36.8; O2SAT 99
== END 2023-09-27 13:52 | disposition home or self-care (01) ==
PROVIDERS: Emergency Provider Student in an Organized Health Care Education/Training Program; PCP Internal Medicine; Visit Provider Student in an Organized Health Care Education/Training Program
DX: S46.912A Strain of unspecified muscle, fascia and tendon at shoulder and upper arm level, left arm, initial encounter (principal); X58.XXXA Exposure to other specified factors, initial encounter
CPT/HCPCS: 73030; 99283